=== PATIENT | female | born 1975 | race Two or more races ===

== ENCOUNTER → 2020-10-31 | Day surgery (SDC) | payer MEDICARE ==
[2020-10-29 11:14] VITALS: BP 113/66
[2020-10-29 11:38] LABS: BASOPHIL # 0.1 10^3/uL (0.0-0.1); BASOPHIL % 1.1 % (0.0-0.2); EOSINOPHIL # 0.3 10^3/uL (0.0-0.2); EOSINOPHIL % 3.4 % (0.0-5.0); LYMPHOCYTES # 1.62 10^3/uL1 (1.0-4.8); LYMPHOCYTES % 17.7 % (24.0-44.0); MONOCYTES # 0.7 10^3/uL (0.3-0.8); MONOCYTES % 7.9 % (5.0-12.0); NEUTROPHIL # 6.4 10^3/uL (1.8-7.7); NEUTROPHILS % 69.9 % (41.0-85.0); RED CELL DISTRIBUTION WIDTH 15.2 % (11.5-14.5)
--- NOTE | 2020-10-29 11:46 | PCM.EKG ---
[facility] Test Date: 2020-10-29 Test Time: 11:20:41 Pat Name: GEGE PUGH Department: Room: Gender: F Rn Circulating: LASHELL : 1952-10-25 Requested By: COSTA SEAMAN Order Number: [id number] Reading MD: Measurements Intervals [place] Rate: 87 P: 75 VT: 150 QRS: 70 QRSD: 66 T: 78 QT: 346 QTc: 416 Interpretive Statements Normal sinus rhythm Low voltage QRS Compared to ECG 04/22/2020 16:01:38 No significant changes Please click the below link to view image of tracing.
[2020-10-29 11:58] LABS: CARBON DIOXIDE 30.7 mmol/L (20.0-32)
[~2020-10-31] VITALS: Ht 160 cm; Wt 122.5 kg
[2020-10-31] VITALS (14 sets, daily range): BP systolic 87–125; BP diastolic 53–94
[~2020-10-31] MED LIST: ALBU8.5H7 IH; ALEN70TA3 PO; ALPR0.5T PO; ASPI-667 PO; ATOR40TA PO; CALC-76 PO; CYAN50009 PO; DUONEB IH; FLUT1BLS IH; FURO40TA4 PO; ISOS30TA73 PO; LEVO150T6 PO; LINA145C PO; LISI20TA PO; MAGN400T9 PO; METF500T17 PO; METO25TA4 PO; MIRT45TA3 PO; NS 1000ML 1,000 ML IV SCH; NS 1000ML 1,000 ML ONE; PHENYLEPHRINE IV ONE; POTA20TA14 PO; PRED20TA PO; SODIUM CHLORIDE IV ONE; SUBLIMAZE ONE; VENL150C PO; VERSED ONE; XYLOCAINE ONE; [UNRECOGNIZED DRUG - CODE] PO
--- NOTE | 2020-10-31 19:49 | CCRH ---
DATE OF SERVICE: 10/31/2020 DICTATOR NAME: COSTA SEAMAN, CARDIAC CATHETERIZATION REPORT INDICATIONS: Abnormal cardiac stress test. This is a 68-year-old female who underwent diagnostic noninvasive testing that revealed abnormal cardiac stress test. She was then set up for heart catheterization after informed consent were obtained, PROCEDURES PERFORMED: 1. Selective coronary angiography. 2. Left ventriculography. 3. Hemostasis established using a 6-Israeli Angio-Seal. DESCRIPTION OF PROCEDURE: Access was obtained, using a 4-Israeli micropuncture kit to cannulate the right common femoral artery. The 4-Israeli sheath was then upsized to a 6-Israeli regular short sheath. Diagnostic angiography was then carried out using the Christina left catheter to engage the left main. The left main was noted to be angiographically normal. It bifurcates into left anterior descending artery and the left circumflex artery. The left anterior descending artery is noted to have mild luminal irregularities. It runs in the interventricular groove, wrapping around the apex to form a type 3 LAD. It gives off a diagonal branch that is noted to have mild luminal irregularities. The left circumflex artery is also noted to have mild luminal irregularities. It gives off two obtuse marginal branches that are noted to have mild luminal irregularities. Christina left catheter was then exchanged for a Christina right, which was used to cross the aortic valve into the left ventricle. Left ventriculography was performed. LVEF was noted to be 60%. LVEDP was noted to be 12. Upon pullback of the Christina right catheter, there was no gradient across the aortic valve. The Christina right catheter was initially attempted to engage the RCA, but it became obvious that the RCA had a posterior takeoff. I then exchanged the catheter for a WRP catheter, which again proved difficult in accessing the right coronary artery. An Amplatz left 1 catheter was then utilized and I was able to successfully engage the RCA. RCA angiography showed a dominant RCA with mild luminal irregularities. The RCA bifurcates distally to a high takeoff posterolateral branch as well as the right posterior descending artery. Both branches are noted to have mild luminal irregularities. The RCA itself has mild luminal irregularities. The Amplatz left catheter was then taken out and hemostasis was established using a 6-Israeli Angio-Seal. 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 There were no complications. IMPRESSION: 1. Nonobstructive coronary artery disease. 2. Selective coronary angiography. 3. Left ventriculography. 4. LVEF of 60%. 5. LVEDP of 12. 6. Hemostasis established using a 6-Israeli Angio-Seal. RECOMMENDATIONS: No coronary intervention is necessary at this time. Lifestyle modification changes have been strongly advised. The patient will be discharged home today to follow up with me in the office in two to three weeks. Brendan AQUINO D.O. DR: OBDULIO TID: [id number] RECEIPT: [id number] MTDD
== END | disposition home or self-care (01) ==
LOC: EDBD → CCL 10:00 → EDBD 10:00
PROVIDERS: ATTEND Internal Medicine Interventional Cardiology
DX: I25.10 Atherosclerotic heart disease of native coronary artery without angina pectoris (principal); Z79.01 Long term (current) use of anticoagulants
CPT/HCPCS: 36415; 80053; 85025; 85610; 85730; 93005; 93458; C1760; C1769; C1887; C1894; J1644; J2250; J3010; J7030; Q9967; C1758

== ENCOUNTER 2021-06-26 17:43 | Inpatient (IN) | payer MEDICARE, MEDICAID ==
[~2021-06-26] VITALS: Ht 160 cm; Wt 132.4 kg
[~2021-06-26 17:43] MED LIST changes: +MAGN400T51 PO; -MAGN400T9 PO; -NS 1000ML 1,000 ML IV SCH; -NS 1000ML 1,000 ML ONE; -PHENYLEPHRINE IV ONE; +POTA-148 PO; -POTA20TA14 PO; -SODIUM CHLORIDE IV ONE; -SUBLIMAZE ONE; -VERSED ONE; -XYLOCAINE ONE
--- NOTE | 2021-06-26 17:50 | NUR ---
ARRIVAL PRESENTED TO ED RM#6 VIA EMS WITH C/O SOB, FLANK PAIN SINCE WEDNESDAY PER PATIENT. VS OBTAINED. SEPSIS PROTOCOL SCREENING POSITIVE. DR. XIONG NOTIFIED OF PATIENT ARRIVAL.
[2021-06-26 18:14] VITALS: BP_SYST 86; BP_SYST 88; BP_DIAS 35; BP_DIAS 43
--- NOTE | 2021-06-26 18:22 | PCM.EKG ---
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
--- NOTE | 2021-06-26 18:23 | ER.PDOC ---
General Chief Complaint: Dyspnea/Respdistress Stated Complaint: SOB/FLANK PAIN Time seen by MD: 18:21 Source: patient Exam Limitations: no limitations History of Present Illness Initial Comments Left flank pain, possible UTI and shortness of breath from the pain for last couple of days. Per EMS patient had a fever on scene. She denies cough. Severity/Quality: moderate, sharpness Associated Symptoms: fever/chills, other (SOB from flank pain) Exacerbated by: nothing Relieved By: nothing Allergies: Coded Allergies: lorazepam (Verified Allergy, Severe, Anaphylaxis Shock, 10/29/20) clindamycin (Verified Allergy, Unknown, FULL BODY RASH, ITCHING, 10/29/20) Home Meds Reported Medications Aspirin (ASPIRIN) 81 Mg Tab.chew, 1 TAB PO DAILY, #30 TAB 3 Refills 10/29/20 [Duoneb] No Conflict Check, 1 DOSE.PACK IH Q6 PRN for SHORTNESS OF BREATH 10/29/20 Isosorbide Mononitrate (ISOSORBIDE MONONITRATE ER) 30 Mg Tab.er.24h, 1 TAB PO DAILY, #30 TAB 5 Refills 10/29/20 Metoprolol Tartrate 25MG (LOPRESSER 25MG) 25 Mg Tablet, 0.5 TAB PO BID, #180 TAB 1 Refill 10/29/20 Levothyroxine Sodium (LEVOTHYROXINE SODIUM) 150 Mcg Tablet, 1 TAB PO DAILY, #30 TAB 5 Refills 10/29/20 Ergocalciferol (Vitamin D2) (Vitamin D2) 1,250 Mcg (48993 Unit) Capsule, 1 CAP PO Q7D 10/29/20 Mirtazapine (REMERON) 45 Mg Tab.rapdis, 45 MG PO HS, TAB 10/29/20 Potassium Chloride (POTASSIUM CHLORIDE) 20 Meq Tab.er.prt, 1 TAB PO DAILY, #30 TAB 5 Refills 10/29/20 Prednisone (PREDNISONE) 20 Mg Tablet, 0.5 TAB PO DAILY PRN for CONGESTION, #5 TAB 10/29/20 Fluticasone/Vilanterol (Breo Ellipta 200-25 Mcg INH) 1 Each Blst.w.dev, 1 EACH IH DAILY24, BLISTER 10/29/20 Alprazolam (XANAX) 0.5 Mg Tablet, 1 TAB PO BID, #60 TAB 10/29/20 Metformin Hcl (METFORMIN HCL) 500 Mg Tablet, 1 TAB PO DAILY24, #60 TAB 3 Refills 10/29/20 Venlafaxine Hcl (EFFEXOR XR) 150 Mg Cap.er.24h, 225 MG PO DAILY24, CAPSULE 10/29/20 Atorvastatin 40MG (LIPITOR 40MG) 40 Mg Tablet, 1 TAB PO HS, #90 TAB 1 Refill 10/29/20 Linaclotide (LINZESS) 145 Mcg Capsule, 145 MCG PO DAILY24, CAPSULE 10/29/20 Lisinopril (PRINIVIL) 20 Mg Tablet, 5 MG PO DAILY24, TAB 10/29/20 Furosemide (FUROSEMIDE) 40 Mg Tablet, 1 TAB PO DAILY, #30 TAB 5 Refills 10/29/20 Magnesium Oxide (MAGNESIUM OXIDE) 400 Mg Tablet, 1 TAB PO DAILY, #30 TAB 5 Refills 10/29/20 Albuterol Sulfate (PROAIR HFA) 8.5 Gm Hfa.aer.ad, 2 PUFF IH Q6 PRN for SHORTNESS OF BREATH, INHALATION 10/29/20 Cyanocobalamin (Vitamin B-12) (Vitamin B12) 5,000 Mcg Tab.rapdis, 2 TAB PO QD for 30 Days, #30 TAB 0 Refills 10/29/20 Alendronate Sodium (FOSAMAX) 70 Mg Tablet, 70 MG PO Q7D, TAB 10/29/20 Calcium Carb & Cit/Vitamin D3 (CALCIUM + D3 ER TABLET) 1 Each Tablet.er, 1 EACH PO TID 10/29/20 Vital Signs First Vital Signs Date Time Temp Pulse Resp B/P (MAP) Pulse Ox O2 Delivery O2 Flow Rate FiO2 06/26/21 18:14 99.2 111 22 88/43 (58) 94 5.00 Last Vital Signs Date Time Temp Pulse Resp B/P (MAP) Pulse Ox O2 Delivery O2 Flow Rate FiO2 06/26/21 18:14 101.0 110 21 94 06/26/21 18:14 88/43 (58) 5.00 Past Medical History Medical History: COPD, diabetes, hypertension Family History Significant Family History: no pertinent family hx Social History Smoking: non-smoker Alcohol Use: sober Drug Use: none Constitutional: no symptoms reported EENTM: no symptoms reported Respiratory: see HPI Cardiovascular: no symptoms reported Gastrointestinal: see HPI Genitourinary: see HPI All Other Systems: Reviewed and Negative Physical Exam General Appearance: No Apparent Distress, WD/WN, Obese HEENT: PERRL/EOMI, Normal ENT Inspection, TMs Normal, Pharynx Normal Neck: Non-Tender, Full Range of Motion, Supple, Normal Inspection Respiratory: chest non-tender, no respiratory distress, no accessory muscle use, rhonchi Cardiovascular: Normal Peripheral Pulses, Regular Rate, Rhythm, No Edema, No Gallop, No JVD, No Murmur, Tachycardia Gastrointestinal: Normal Bowel Sounds, No Organomegaly, No Pulsatile Mass, Tenderness Back: Normal Inspection, CVA Tenderness (L) Extremities: Normal Range of Motion, Non-Tender, Normal Inspection, No Pedal Edema, No Calf Tenderness, Normal Capillary Refill, Pelvis Stable 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 (06/26/21 18:18) Ekg-Routine (06/26/21 18:18) Troponin I High Sensitivity (06/26/21 18:18) Urinalysis (06/26/21 18:18) Ct Abd/Pelvis Wo Iv Contrast (06/26/21 18:18) Covid19 Antigen Angelic Demi (06/26/21 18:18) Lactic Acid(Ml) (06/26/21 18:18) Procalcitonin (06/26/21 18:18) 0.9 % Sodium Chloride (Ns 1000ml) (06/26/21 18:58) 0.9 % Sodium Chloride (Ns 1000ml) (06/26/21 18:59) Arterial Blood Gas (06/26/21 19:16) Urine Culture (06/26/21 19:10) Ct Abd/Pel With Iv Contrast (06/26/21 20:03) 0.9 % Sodium Chloride (Ns 1000ml) (06/26/21 21:27) 0.9 % Sodium Chloride (Ns 100ml) (06/26/21 21:28) Piperacillin Sodium/Tazobactam (Zosyn 3. (06/26/21 21:30) 0.9 % Sodium Chloride (Ns 1000ml) (06/26/21 21:30) Vital Signs Date Time Temp Pulse Resp B/P (MAP) Pulse Ox O2 Delivery O2 Flow Rate FiO2 06/26/21 18:14 101.0 110 21 94 06/26/21 18:14 101.0 110 21 06/26/21 18:14 99.2 111 22 88/43 (58) 94 5.00 Administered Medications Medications (Trade) Dose Ordered Sig/Bird Route PRN Reason Start Time Stop Time Status Last Admin Dose Admin Piperacillin Sod/ Tazobactam Sod 3.375 gm/Sodium Chloride 100 ml @ 100 mls/hr STAT STAT IV 06/26/21 21:30 06/26/21 22:29 DC 06/26/21 21:39 100 MLS/HR Sodium Chloride 1,000 ml @ 100 mls/hr Q10H STAT IV 06/26/21 21:30 06/27/21 07:29 06/26/21 21:39 100 MLS/HR Sodium Chloride 1,000 ml @ 1,000 mls/hr Q1H STAT IV 06/26/21 18:58 06/26/21 19:57 DC 06/26/21 19:14 1,000 MLS/HR Laboratory Tests Test 06/26/21 18:10 06/26/21 18:31 06/26/21 19:10 06/26/21 19:27 SARS-CoV-2 Antigen (Rapid) NEGATIVE (NEGATIVE) White Blood Count 17.0 10^3/uL (4.5-11.0) H Red Blood Count 3.57 10^6/uL (4.00-5.20) L Hemoglobin 11.3 g/dL (12.0-15.0) L Hematocrit 35.1 % (36.0-46.0) L Mean Corpuscular Volume 98.3 fL (78-100) Mean Corpuscular Hemoglobin 31.7 pg (26-34) Mean Corpuscular Hemoglobin Concent 32.2 g/dL (33-36.5) L Red Cell Distribution Width 14.2 % (11.5-14.5) Platelet Count 170 10^3/uL (150-400) Mean Platelet Volume 10.4 fL (7.8-11.0) Neutrophils (%) (Auto) 77.7 % (41.0-85.0) Lymphocytes (%) (Auto) 11.2 % (24.0-44.0) L Monocytes (%) (Auto) 10.3 % (5.0-12.0) Neutrophils # (Auto) 13.2 10^3/uL (1.8-7.7) H Lymphocytes # (Auto) 1.91 10^3/uL1 (1.0-4.8) Monocytes # (Auto) 1.8 10^3/uL (0.3-0.8) H Absolute Immature Granulocyte (auto 0.05 10^3 u/L (0-2) Absolute Eosinophils (auto) 0.0 10^3/uL (0.0-0.2) Immature Granulocytes % 0.30 % (0.00-0.50) Eosinophils % 0.1 % (0.0-5.0) Basophils % 0.4 % (0.0-0.2) H Basophils # 0.1 10^3/uL (0.0-0.1) Prothrombin Time 11.9 SEC (9.6-12.0) Prothrombin Time INR (Non-Therap) 1.1 Activated Partial Thromboplast Time 26.7 SEC (24.67-30.72) Sodium Level 129 mmol/L (132-145) L Potassium Level 3.5 mmol/L (3.6-5.2) L Chloride Level 95.0 mmol/L (96-109) L Carbon Dioxide Level 28.3 mmol/L (20.0-32) Anion Gap 9.2 Blood Urea Nitrogen 12 mg/dL (7-18) Creatinine 1.21 mg/dL (0.59-1.40) Estimated GFR () 53.4 (>/=60) Est GFR (CKD-EPI)(Non-Afr Kosovan) 44.1 (>/=60) BUN/Creatinine Ratio 9.0 Glucose Level 136 mg/dL (70-110) H Lactic Acid Level 1.7 mmol/L (0.5-1.9) Calcium Level 7.5 mg/dL (8.4-10.5) L Total Bilirubin 0.7 mg/dL (0.2-1.0) Aspartate Amino Transferase (AST) 22 U/L (0-35) Alanine Aminotransferase (ALT) 24 U/L (12-78) Alkaline Phosphatase 85 U/L (50-136) Total Creatine Kinase 34 U/L (26-192) Creatine Kinase MB < 0.5 ng/mL (0.5-3.6) L Troponin I High Sensitivity 8 ng/L (0-50) Pro-B-Type Natriuretic Peptide 118 pg/mL (0-125) Total Protein 5.9 g/dL (6.4-8.2) L Albumin 2.4 g/dL (3.4-5.0) L Globulin 3.5 Albumin/Globulin Ratio 0.685 Procalcitonin 0.26 ng/mL (0.05-0.5) Urine Collection Type UNKNOWN Urine Color IBIS Urine Appearance CLOUDY Urine Bilirubin (NEGATIVE) Urine Ketones NEGATIVE (NEGATIVE) Urine Specific [place] (1.005-1.030) Urine pH 7.5 (4.5-8.0) Urine Protein 3+ (NEGATIVE) H Urine Urobilinogen E.U./dL (0.2) Urine Nitrate NEGATIVE (NEGATIVE) Urine Leukocyte Esterase 3+ (NEGATIVE) H Urine Glucose (Auto)(UA) NEGATIVE (NEGATIVE) Urine Blood 3+ (NEGATIVE) H Urine RBC TooNumerousToCount RBC/HPF (NONE Urine WBC TooNumerousToCount WBC/HPF (0-2) Urine Squamous Epithelial Cells FEW (<=FEW) Urine Bacteria MANY (NONE SEEN) H Blood Gas Sample Site LB Blood pH 7.346 (7.350-7.450) Blood Gas PCO2 47.3 mmHg (35.0-45.0) H Blood Gas PO2 66.4 mmHg (80.0-100.0) L Blood Gas HCO3 25.3 mmol/L (22.0-26.0) Blood Gas Base Excess -0.7 mmol/L (-2.0-2.0) Dimitri Test N/A Arterial Blood Oxygen Saturation 92.2 % (94.0-97.00) L Deoxyhemoglobin 7.7 % (0.0-5.0) H Carboxyhemoglobin 0.7 % (0.0-3.9) Methemoglobin 0.5 % (0.00-5.0) Total Hemoglobin 11.9 % (12.0-17.8) L Total Oxygen Concentration 15.3 % (13.5-17.5) Oxygen Delivery Method 3L/M FiO2 32 % (20-101) Total Carbon Dioxide 26.7 mmol/L (23-27) Progress Progress CT abdomen/pelvis: Findings highly concerning for pyelonephritis with possible left lower pole renal abscess. There is significant left perinephric and periureteral inflammatory stranding and smooth urothelial enhancement. Questionable punctate left lower pole renal calculi. 2. Other stable incidental findings as above. I spoke with Dr. Funez who is the Urologist at [facility] in [place]. He told me that 3.2 cm renal abscess is too small to drain by interventional radiologist and should be managed medically so no reason to transfer patient. . EKG/XRAY/CT/US EKG: NSR EKG Comments: HR 106, sinus tachycardia ER DEPART Departure Time of Disposition: 22:46 Disposition: 09 ADMITTED INPATIENT Impression: Primary Impression: Sepsis Additional Impressions: Pyelonephritis Renal abscess, left COPD (chronic obstructive pulmonary disease) Condition: Stable Referrals: PCP,UNKNOWN (PCP) PRIMARY CARE PROVIDER Comments Admitted to Dr. Jackson Duration or Time Spent with Pa: 60 min Problem Qualifiers Primary Impression: Sepsis Sepsis type: sepsis due to unspecified organism Sepsis acute organ dysfunction status: unspecified Qualified Codes: A41.9 - Sepsis, unspecified organism Additional Impressions: COPD (chronic obstructive pulmonary disease) COPD type: unspecified COPD Qualified Codes: J44.9 - Chronic obstructive pulmonary disease, unspecified OZZIE XIONG MD Jun 26, 2021 18:23
--- NOTE | 2021-06-26 18:28 | NUR ---
REPORT REPORT GIVEN TO ONCOMING SHIFT.
[2021-06-26 18:37] LABS: BASOPHIL # 0.1 10^3/uL (0.0-0.1); BASOPHIL % 0.4 % (0.0-0.2); EOSINOPHIL % 0.1 % (0.0-5.0); LYMPHOCYTES # 1.91 10^3/uL1 (1.0-4.8); LYMPHOCYTES % 11.2 % (24.0-44.0); MEAN CORP HGB 31.7 pg (26-34); MONOCYTES # 1.8 10^3/uL (0.3-0.8); MONOCYTES % 10.3 % (5.0-12.0); NEUTROPHIL # 13.2 10^3/uL (1.8-7.7); NEUTROPHILS % 77.7 % (41.0-85.0); PLATELET COUNT 170 10^3/uL (150-400); RED CELL DISTRIBUTION WIDTH 14.2 % (11.5-14.5)
[2021-06-26] MEDS ORDERED: NS 1000ML 1,000 ML IV STA ×2 (18:58→21:30)
[2021-06-26] MEDS ORDERED: NS 1000ML 1,000 ML ONE ×2 (18:59→21:27)
--- NOTE | 2021-06-26 19:01 | DIREP ---
PROCEDURE:CHEST 1 VIEW Lordotic COMPARISON:[facility], CR, XRAY CHEST SINGLE VW, 04/22/2020, 04:12 PM. INDICATIONS:SOB FINDINGS: LUNGS/PLEURA:Lordotic chest shows increased density right anjana thorax compared to the contralateral left air bronchograms are not detected. VASCULATURE:Normal. Unremarkable pulmonary vasculature. CARDIAC:Large heart MEDIASTINUM:Normal. No visible mass or adenopathy. BONES:Normal. No fracture or visible bony lesion. OTHER:Negative. CONCLUSION:Lordotic view of the chest shows increased density left anjana thorax compared to the contralateral right. This may be related to overlying soft tissue. If pneumonia is suspected on clinical grounds recommend CT of the chest. Dictated by: Tyra Collier MD on 06/26/2021 at 06:56 PM
--- NOTE | 2021-06-26 19:16 | DIREP ---
PROCEDURE:CT ABDOMEN/PELVIS W/O CONTRAST COMPARISON:[facility], CT, CTA ABDOMEN PELVIS W RUNOFF, 01/17/2020, 10:00 AM. INDICATIONS:Left flank pain TECHNIQUE:Axial images were created through the abdomen and pelvis without intravenous contrast material. No oral contrast was administered. Sagittal and coronal reconstructions were performed from source images. FINDINGS: LUNG BASES:No infiltrate. Sub pleural fat in both posterior sulci, left greater than right LIVER:Normal. No significant liver lesions are identified. BILIARY:Cholecystectomy PANCREAS:Normal. No lesion, fluid collection, ductal dilatation, or atrophy. SPLEEN:Normal. No enlargement or focal lesion. ADRENALS:Normal. No mass or enlargement. URINARY TRACT:18 mm exophytic cyst lower pole right kidney. No hydronephrosis or hydroureter on the right. No nephrolithiasis Left kidney is too masses distorting the contour of the lower pole, the largest is 2.9 cm in diameter, both are slightly hypodense in could represent cysts. The larger lower pole mass has a slightly hyperdense margin raising the possibility of an abscess or neoplasm. There is edema in the perinephric fat on the left. There is subtle thickening of Gerota's fascia and the lateral Conal fascia on the left. Left ureter is not dilated. There is no nephrolithiasis or ureteric stone. AORTA/VASCULAR:Normal. No aneurysm. RETROPERITONEUM:No para-aortic adenopathy. Enlarged tristan hepatis lymph nodes, the largest is 13 mm in short axis diameter, essentially unchanged from 01/17/[address] BOWEL/MESENTERY:Normal. There is no intestinal obstruction, free fluid, free air or mesenteric inflammatory changes. ABDOMINAL WALL:Normal. No mass or hernia. PELVIC ORGANS:Normal. No visible mass. Pelvic organs appropriate for patient age. BONES:Uterus is absent. No free fluid in the pelvis OTHER:Negative. CONCLUSION:Perinephric edema on the left. Two masses involving the lower pole of the left kidney, the most exophytic may represent a cyst. A lower pole parenchymal mass has a subtle hyperdense rim, consider abscess or neoplasm. No nephrolithiasis. No hydronephrosis or hydroureter on either side. Dictated by: Tyra Collier MD on 06/26/2021 at 07:01 PM
[2021-06-26 19:21] LABS: CARBON DIOXIDE 28.3 mmol/L (20.0-32); GLUCOSE 136 mg/dL (70-110)
--- NOTE | 2021-06-26 19:30 | NUR ---
pt unable to void after attempt to go to BR. 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 pt tolerated procedure well.
[2021-06-26 19:35] LABS: ABG PCO2 47.3 mmHg (35.0-45.0); ABG PH 7.346 (7.350-7.450); BE(B) -0.7 mmol/L (-2.0-2.0); HCO3act 25.3 mmol/L (22.0-26.0); pO2 66.4 mmHg (80.0-100.0)
--- NOTE | 2021-06-26 21:09 | DIREP ---
PROCEDURE:CT ABDOMEN/PELVIS W/ CONTRAST COMPARISON:[facility], CT, CT ABD/PELVIS W/O, 06/26/2021, 06:40 PM. [facility], CT, CTA ABDOMEN PELVIS W RUNOFF, 01/17/2020, 10:00 AM. INDICATIONS:Left flank pain TECHNIQUE:Axial images were created through the abdomen and pelvis with non-ionic intravenous contrast material. No oral contrast was administered. Sagittal and coronal reconstructions were performed from source images. FINDINGS: LUNG BASES:Subsegmental left basilar atelectasis. No consolidation or pleural effusion. Normal heart size. LIVER:Mild hypoattenuation of the liver relative to the spleen, not technically meeting criteria for diffuse hepatic steatosis. No focal hepatic lesion is seen. BILIARY:The gallbladder is surgically absent. No biliary ductal dilatation. PANCREAS:Normal. No lesion, fluid collection, ductal dilatation, or atrophy. SPLEEN:Normal. No enlargement or focal lesion. ADRENALS:Normal. No mass or enlargement. URINARY TRACT:Slight hypoenhancement of the left kidney relative to the right. Ill-defined mildly complex left lower pole renal lesion measuring 3.2 cm with significant surrounding perinephric inflammatory change, possibly an abscess. Other renal cortical hypodensities bilaterally measure simple fluid attenuation and are compatible with cysts. Possible tiny punctate nonobstructive left lower pole calculi. There is smooth urothelial enhancement of the left renal collecting system. AORTA/VASCULAR:There are aortic atherosclerotic calcifications present. No aneurysm. RETROPERITONEUM:Left perinephric stranding is present. No retroperitoneal adenopathy. There is a mildly enlarged portacaval node measuring 1.5 cm in short axis, likely reactive. BOWEL/MESENTERY:The appendix is not visualized. There is no intestinal obstruction, free fluid, free air or mesenteric inflammatory changes. Submucosal fat deposition in the left colon suggesting prior inflammation. ABDOMINAL WALL:Normal. No mass or hernia. PELVIC ORGANS:The uterus is surgically absent. There is no suspicious adnexal mass. The urinary bladder is collapsed, limiting evaluation. BONES:Normal for age. No bony lesion or acute fracture. OTHER:Dystrophic calcification inferior to the right scapula may represent sequela of prior trauma. CONCLUSION: 1. Findings highly concerning for pyelonephritis with possible left lower pole renal abscess. There is significant left perinephric and periureteral inflammatory stranding and smooth urothelial enhancement. Questionable punctate left lower pole renal calculi. 2. Other stable incidental findings as above. Dictated by: Jarret Ochoa M.D. on 06/26/2021 at 08:48 PM
[2021-06-26] MEDS ORDERED: NS 100ML 100 ML IV ONE (21:28)
[2021-06-26] MEDS ORDERED: ZOSYN 3.375 GM 3.375 GM in NS 100ML 100 ML IV STA (21:30)
--- NOTE | 2021-06-26 22:03 | NUR ---
SPOKE WITH TRANSFER LINE AT [facility], INFO GIVEN.
--- NOTE | 2021-06-26 22:17 | NUR ---
SPOKE WITH TRANSFER LINE AT [facility], INFO GIVEN.
--- NOTE | 2021-06-26 22:18 | NUR ---
Cat MARTELL PT
--- NOTE | 2021-06-26 22:19 | NUR ---
[facility] TRANSFER LINE ON PHONE WITH DR XIONG AT THIS TIME.
[2021-06-26] MEDS: ZOSYN 3.375 GM 3.375 GM in NS 100ML 100 ML IV SCH (23:46)
[2021-06-27] VITALS (51 sets, daily range): BP systolic 85–144; BP diastolic 17–94
[2021-06-27] MEDS ORDERED: NS 1000ML 1,000 ML IV SCH (00:30)
[2021-06-27] MEDS: NS 1000ML 1,000 ML IV SCH ×2 (00:30→12:00)
--- NOTE | 2021-06-27 01:00 | NUR ---
Attempted to notified Dr. Jackson of pts arrival- unable to reach
[2021-06-27] MEDS ORDERED: MORPHINE SULFATE IV PRN (04:00)
--- NOTE | 2021-06-27 04:13 | NUR ---
Dr. Jackson notified of pt arrival time and status. new orders received.
[2021-06-27 04:20] LABS: BASOPHIL % 0.3 % (0.0-0.2); EOSINOPHIL % 0.2 % (0.0-5.0); LYMPHOCYTES # 1.48 10^3/uL1 (1.0-4.8); MEAN CORP HGB 31.5 pg (26-34); MONOCYTES # 1.1 10^3/uL (0.3-0.8); NEUTROPHIL # 10.8 10^3/uL (1.8-7.7); NEUTROPHILS % 80.5 % (41.0-85.0); PLATELET COUNT 165 10^3/uL (150-400); RED CELL DISTRIBUTION WIDTH 14.2 % (11.5-14.5)
[2021-06-27 04:32] LABS: CARBON DIOXIDE 29.7 mmol/L (20.0-32)
[2021-06-27] MEDS: ZOSYN 3.375 GM 3.375 GM in NS 100ML 100 ML IV SCH ×4 (06:00→22:45)
[2021-06-27] MEDS ORDERED: NS 100ML 100 ML IV ONE (06:02)
--- NOTE | 2021-06-27 10:54 | NUR ---
DISCHARGE PLAN CM VISITED WITH PATIENT REGARDING D/C PLAN. PATIENT LIVES AT HOME ALONE. SHE HAS A WALKER, W/C, SHOWER CHAIR AND HOME 02 THAT SHE WEARS AT [employer]. SHE RECEIVES MEALS FROM [employer]. HER PCP IS ROBIN KOO. SHE HAS [facility] IN PLACE AND IS ON SERVICE FOR CAD, UTI AND PSYCH SERVICES. CM DISCUSSED WITH PENNIE BECKHAM NURSE PATIENT REQUESTING PROVIDER SERVICES AT HOME. PER PENNIE SHE WILL HAVE SS SCREEN HER TO SEE IF SHE CAN QUALIFY. DISCHARGE PLAN IS FOR PATIENT TO D/C BACK HOME WITH [facility] TO FOLLOW.
--- NOTE | 2021-06-27 13:04 | NUR ---
O2 CHECK - pat on 3lpm nc per home o2 setting - SPO2 95% Addendum: 06/27/21 at 1308 by Kailee Mittal RRT, Contract RT Amended: Links added.
[2021-06-27] MEDS ORDERED: VENTOLIN IH PRN (15:00)
[2021-06-27] MEDS ORDERED: DEXTROSE 50%-WATER SYRINGE IV PRN (15:00)
[2021-06-27] MEDS ORDERED: DUO 0.5-3(2.5) MG/3 ML IH PRN (15:00)
[2021-06-27] MEDS ORDERED: TYLENOL PO PRN (15:00)
[2021-06-27] MEDS ORDERED: D5W 1000ML 1,000 ML PRN (15:00)
--- NOTE | 2021-06-27 15:11 | PCM.HP ---
History of Present Illness Reason for Visit: Left flank pain History of Present Illness 68-year-old female with multiple medical problems including hypertension, diabetes, morbid obesity, COPD, coronary artery disease, congestive heart failure, among others presented to the emergency room with left flank pain. In the emergency room patient had low blood pressure, hypotensive. Work-up patient was found to have left pyelonephritis with possible abscess. Attempts to transfer the patient to medical facility where there is interventional radiology available was attempted but unsuccessful due to nonavailability of beds. Patient is on IV fluids. IV antibiotic. Patient was admitted to the intensive care unit for further management. Past Medical History Cardiac: CAD, CHF, HTN Pulmonary: COPD Endocrine: Diabetes Review of Systems Constitutional: Fever, Chills, Weakness Respiratory: Shortness of breath Gastrointestinal: Nausea Genitourinary: Dysuria, Other (Flank pain) Neurological: Weakness Allergies: Coded Allergies: lorazepam (Verified Allergy, Severe, Anaphylaxis Shock, 10/29/20) clindamycin (Verified Allergy, Unknown, FULL BODY RASH, ITCHING, 10/29/20) Scheduled Alendronate Sodium (Fosamax), 70 MG PO Q7D, (Reported) Alprazolam (Xanax), 1 TAB PO BID, (Reported) Aspirin (Aspirin), 1 TAB PO DAILY, (Reported) Atorvastatin 40MG (Lipitor 40MG), 1 TAB PO HS, (Reported) Calcium Carb & Cit/Vitamin D3 (Calcium + D3 Er Tablet), 1 EACH PO TID, (Reported) Cyanocobalamin (Vitamin B-12) (Vitamin B12), 2 TAB PO QD, (Reported) Ergocalciferol (Vitamin D2) (Vitamin D2), 1 CAP PO Q7D, (Reported) Fluticasone/Vilanterol (Breo Ellipta 200-25 Mcg INH), 1 EACH IH DAILY24, (Reported) Furosemide (Furosemide), 1 TAB PO DAILY, (Reported) Isosorbide Mononitrate (Isosorbide Mononitrate Er), 1 TAB PO DAILY, (Reported) Levothyroxine Sodium (Levothyroxine Sodium), 1 TAB PO DAILY, (Reported) Linaclotide (Linzess), 145 MCG PO DAILY24, (Reported) Lisinopril (Prinivil), 5 MG PO DAILY24, (Reported) Magnesium Oxide (Magnesium Oxide), 1 TAB PO DAILY, (Reported) Metformin Hcl (Metformin Hcl), 1 TAB PO DAILY24, (Reported) Metoprolol Tartrate 25MG (Lopresser 25MG), 0.5 TAB PO BID, (Reported) Mirtazapine (Remeron), 45 MG PO HS, (Reported) Potassium Chloride (Potassium Chloride), 1 TAB PO DAILY, (Reported) Venlafaxine Hcl (Effexor Xr), 225 MG PO DAILY24, (Reported) Scheduled PRN Albuterol Sulfate (Proair Hfa), 2 PUFF IH Q6 PRN for SHORTNESS OF BREATH, (Reported) Prednisone (Prednisone), 0.5 TAB PO DAILY PRN for CONGESTION, (Reported) [Duoneb], 1 DOSE.PACK IH Q6 PRN for SHORTNESS OF BREATH, (Reported) Exam Vital Signs Vital Signs Date Time Temp Pulse Resp B/P (MAP) Pulse Ox O2 Delivery O2 Flow Rate FiO2 06/27/21 14:27 106 21 115/51 (72) 97 06/27/21 12:00 Nasal Cannula 3.00 06/27/21 08:30 99.0 06/27/21 07:38 32 General Appearance: Alert, moderate distress HEENT: Atraumatic, Other (Dry mucous membrane) Respiratory: Other (Diminished air entry bilaterally) Cardiovascular: Regular rate, Normal S1, Normal S2 Abdominal: Normal bowel sounds, Soft, No tenderness Extremities: No clubbing, No cyanosis Skin: No lesions Neuro: Other (Patient is slow in answering questions, unknown baseline) Psych/Mental Status: Other (Unable to assess) Assessment/Plan Assessment/Plan Assessment/Plan Plan Admit Septic work-up including blood culture and urine cultures IV fluids IV antibiotic continue with Zosyn for now awaiting culture results Attempts to transfer the patient to a facility where there is interventional radiology available was unsuccessful in the ED. We will consult urology for evaluation further recommendations SSI Reconcile home meds GI and DVT prophylaxis appropriate Expect length of stay more than 2 midnights Problems: (1) Sepsis Status: Acute ICD Code: A41.9 - Sepsis, unspecified organism SNOMED: 29012101 (2) Renal abscess, left Status: Acute ICD Code: N15.1 - Renal and perinephric abscess SNOMED: 4294572 (3) Pyelonephritis Status: Acute ICD Code: N12 - Tubulo-interstitial nephritis, not specified as acute or chronic SNOMED: 09360807 (4) COPD (chronic obstructive pulmonary disease) Status: Acute ICD Code: J44.9 - Chronic obstructive pulmonary disease, unspecified SNOMED: 06285716 (5) Diabetes mellitus ICD Code: E11.9 - Type 2 diabetes mellitus without complications SNOMED: 89198221 (6) Coronary artery disease ICD Code: I25.10 - Atherosclerotic heart disease of [place] coronary artery without angina pectoris SNOMED: 02354734 Patient History: Alzheimer's disease G8 FATHER, Age:87 Cardiac pacemaker G8 BROTHER Diabetes mellitus G8 FATHER, Age:87 FH: coronary artery bypass surgery G8 FATHER, Age:87 FH: coronary artery disease G8 FATHER, Age:87 FH: heart disease G8 FATHER, Age:87 G8 BROTHER 19 CHILD, , Age:39, Onset:19 FH: prostate cancer G8 BROTHER Hypertension G8 MOTHER, , Age:86 G8 FATHER, Age:87 19 CHILD, , Age:39 No known health problems G8 BROTHER 19 CHILD No Family History of: Asthma Cerebrovascular disorder Chronic obstructive pulmonary disease Congestive heart failure Diabetes insipidus Parkinson's disease Problem Qualifiers (1) Sepsis: Sepsis type: sepsis due to unspecified organism Sepsis acute organ dysfunction status: unspecified Qualified Codes: A41.9 - Sepsis, unspecified organism (2) COPD (chronic obstructive pulmonary disease): COPD type: unspecified COPD Qualified Codes: J44.9 - Chronic obstructive pulmonary disease, unspecified ANSELMO MORGAN MD Jun 27, 2021 15:11
--- NOTE | 2021-06-27 16:00 | NUR ---
Transfer Transferred from ICU 7 to [facility] 332. Transferred via wheel chair. Transferred from wheel chair to bed with minimal assistance x1. Report and care given to Lacey Ricardo RN.
[2021-06-27] MEDS: HUMALOG SQ SCH ×2 (16:36→22:43)
[2021-06-27] MEDS ORDERED: ZOFRAN ONE (16:48)
[2021-06-27] MEDS: LOVENOX SQ SCH (16:58)
[2021-06-27] MEDS: ULTRAM PO PRN (16:59)
[2021-06-27] MEDS ORDERED: ZOFRAN IV PRN (17:00)
[2021-06-28 01:06] VITALS: BP 128/60
[2021-06-28] MEDS: NS 1000ML 1,000 ML IV SCH ×3 (02:12→16:29)
[2021-06-28] MEDS: ULTRAM PO PRN (03:24)
[2021-06-28] MEDS: ZOSYN 3.375 GM 3.375 GM in NS 100ML 100 ML IV SCH ×4 (05:34→23:11)
[2021-06-28 05:38] VITALS: BP 137/59
[2021-06-28 08:00] LABS: BASOPHIL % 0.3 % (0.0-0.2); EOSINOPHIL # 0.1 10^3/uL (0.0-0.2); EOSINOPHIL % 0.4 % (0.0-5.0); LYMPHOCYTES # 0.67 10^3/uL1 (1.0-4.8); LYMPHOCYTES % 5.2 % (24.0-44.0); MEAN CORP HGB 31.5 pg (26-34); MONOCYTES # 1.1 10^3/uL (0.3-0.8); MONOCYTES % 8.2 % (5.0-12.0); NEUTROPHILS % 85.5 % (41.0-85.0); PLATELET COUNT 205 10^3/uL (150-400)
[2021-06-28 08:21] LABS: CARBON DIOXIDE 24.6 mmol/L (20.0-32)
[2021-06-28] MEDS: HUMALOG SQ SCH ×4 (08:42→21:35)
[2021-06-28] MEDS ORDERED: KCL 20MEQ/100ML 100 ML IV STA (08:49)
[2021-06-28] MEDS ORDERED: POTASSIUM CHLORIDE PO ONE ×2 (09:00→10:30)
[2021-06-28] MEDS: PROTONIX IV IV SCH (09:55)
[2021-06-28 11:31] VITALS: BP 123/60
--- NOTE | 2021-06-28 12:25 | PRM.PN ---
Subjective Subjective Date: Jun 28, 2021 Time: 09:00 Subjective New new complaints except for left flank pain. WBC count continues to trend down, patient afebrile. Patient is hypokalemic with potassium of 3.1, being replaced. Sodium is 129. Urine culture growing Klebsiella and Proteus, sensi tive to Zosyn. Patient History: Alzheimer's disease G8 FATHER, Age:87 Cardiac pacemaker G8 BROTHER Diabetes mellitus G8 FATHER, Age:87 FH: coronary artery bypass surgery G8 FATHER, Age:87 FH: coronary artery disease G8 FATHER, Age:87 FH: heart disease G8 FATHER, Age:87 G8 BROTHER 19 CHILD, , Age:39, Onset:19 FH: prostate cancer G8 BROTHER Hypertension G8 MOTHER, , Age:86 G8 FATHER, Age:87 19 CHILD, , Age:39 No known health problems G8 BROTHER 19 CHILD No Family History of: Asthma Cerebrovascular disorder Chronic obstructive pulmonary disease Congestive heart failure Diabetes insipidus Parkinson's disease Review of Systems Constitutional: Chills, Weakness Respiratory: Shortness of breath Gastrointestinal: Nausea Genitourinary: Dysuria, Other (Flank pain) Neurological: Weakness Allergies: Coded Allergies: lorazepam (Verified Allergy, Severe, Anaphylaxis Shock, 10/29/20) clindamycin (Verified Allergy, Unknown, FULL BODY RASH, ITCHING, 10/29/20) Scheduled Alendronate Sodium (Fosamax), 70 MG PO Q7D, (Reported) Alprazolam (Xanax), 1 TAB PO BID, (Reported) Aspirin (Aspirin), 1 TAB PO DAILY, (Reported) Atorvastatin 40MG (Lipitor 40MG), 1 TAB PO HS, (Reported) Calcium Carb & Cit/Vitamin D3 (Calcium + D3 Er Tablet), 1 EACH PO TID, (Reporte d) Cyanocobalamin (Vitamin B-12) (Vitamin B12), 2 TAB PO QD, (Reported) Ergocalciferol (Vitamin D2) (Vitamin D2), 1 CAP PO Q7D, (Reported) Fluticasone/Vilanterol (Breo Ellipta 200-25 Mcg INH), 1 EACH IH DAILY24, (Reported) Furosemide (Furosemide), 1 TAB PO DAILY, (Reported) Isosorbide Mononitrate (Isosorbide Mononitrate Er), 1 TAB PO DAILY, (Reported) Levothyroxine Sodium (Levothyroxine Sodium), 1 TAB PO DAILY, (Reported) Linaclotide (Linzess), 145 MCG PO DAILY24, (Reported) Lisinopril (Prinivil), 5 MG PO DAILY24, (Reported) Magnesium Oxide (Magnesium Oxide), 1 TAB PO DAILY, (Reported) Metformin Hcl (Metformin Hcl), 1 TAB PO DAILY24, (Reported) Metoprolol Tartrate 25MG (Lopresser 25MG), 0.5 TAB PO BID, (Reported) Mirtazapine (Remeron), 45 MG PO HS, (Reported) Potassium Chloride (Potassium Chloride), 1 TAB PO DAILY, (Reported) Venlafaxine Hcl (Effexor Xr), 225 MG PO DAILY24, (Reported) Scheduled PRN Albuterol Sulfate (Proair Hfa), 2 PUFF IH Q6 PRN for SHORTNESS OF BREATH, (Reported) Prednisone (Prednisone), 0.5 TAB PO DAILY PRN for CONGESTION, (Reported) [Duoneb], 1 DOSE.PACK IH Q6 PRN for SHORTNESS OF BREATH, (Reported) Objective Vitals and I/O Vital Sign - Last 24 Hours 06/27/21 06/27/21 06/27/21 06/27/21 12:28 12:30 12:42 13:00 Pulse 122 117 108 107 Resp B/P (MAP) 118/58 (78) 121/65 (83) Pulse Ox 89 90 94 95 06/27/21 06/27/21 06/27/21 06/27/21 13:12 13:15 13:30 13:42 Pulse 104 104 105 111 Resp B/P (MAP) 87/55 (66) 115/71 (86) Pulse Ox 94 94 96 92 06/27/21 06/27/21 06/27/21 06/27/21 13:45 13:57 14:00 14:13 Pulse 108 107 107 107 Resp B/P (MAP) 117/31 (59) 114/51 (72) Pulse Ox 93 91 95 85 06/27/21 06/27/21 06/27/21 06/27/21 14:15 14:27 14:45 14:57 Pulse 108 106 106 103 Resp B/P (MAP) 115/51 (72) 99/54 (69) Pulse Ox 94 97 98 97 06/27/21 06/27/21 06/27/21 06/27/21 15:00 15:12 15:15 15:27 Pulse 103 104 103 107 Resp 19 B/P (MAP) 122/45 (70) 111/53 (72) Pulse Ox 95 95 94 94 06/27/21 06/27/21 06/27/21 06/27/21 15:30 15:42 15:45 15:57 Pulse 105 104 101 Resp B/P (MAP) 109/45 (66) 105/52 (69) Pulse Ox 94 95 94 93 06/27/21 06/27/21 06/27/21 06/27/21 16:00 16:12 16:15 17:02 Pulse 101 102 106 Resp B/P (MAP) 107/66 (80) Pulse Ox 94 89 O2 Delivery Nasal Cannula O2 Flow Rate 3.00 06/27/21 06/27/21 06/27/21 06/28/21 20:41 22:40 22:53 01:06 Temp 98.9 98.7 Pulse 102 102 91 Resp 16 B/P (MAP) 111/42 (65) 128/60 (82) Pulse Ox 95 95 98 O2 Delivery Nasal Canula Nasal Cannula Nasal Cannula Nasal Canula O2 Flow Rate 3.00 3.00 3.00 3.00 FiO2 32 06/28/21 06/28/21 06/28/21 06/28/21 05:38 09:30 09:30 11:31 Temp 99.8 98.8 Pulse 101 84 84 93 Resp 18 18 18 18 B/P (MAP) 137/59 (85) 123/60 (81) Pulse Ox 94 97 97 94 O2 Delivery Nasal [place] Nasal Cannula Nasal Canula O2 Flow Rate 3.00 3.00 3.00 FiO2 32 06/28/21 11:38 O2 Delivery Nasal Cannula O2 Flow Rate 3.00 Intake and Output 06/28/21 07:00 Intake Total 2562 ml Output Total 3400 ml Balance -838 ml General: Alert, moderate distress HEENT: Atraumatic, Other (Dry mucous membrane) Lungs: Other (Diminished air entry bilaterally) Heart: Regular rate, Normal S1, Normal S2 Abdomen: Normal bowel sounds, Soft, No tenderness Extremities: No clubbing, No cyanosis Neuro: Other (Patient is slow in answering questions, unknown baseline) Psych/Mental Status: Other (Unable to assess) All Results(Lab/Rad) Laboratory Tests Test 06/27/21 16:22 06/27/21 21:09 06/28/21 07:40 06/28/21 11:57 Bedside Glucose 122 106 163 White Blood Count 12.9 10^3/uL Red Blood Count 3.52 10^6/uL Hemoglobin 11.1 g/dL Hematocrit 35.4 % Mean Corpuscular Volume 100.6 fL Mean Corpuscular Hemoglobin 31.5 pg Mean Corpuscular Hemoglobin Concent 31.4 g/dL Red Cell Distribution Width 14.0 % Platelet Count 205 10^3/uL Mean Platelet Volume 11.1 fL Neutrophils (%) (Auto) 85.5 % Lymphocytes (%) (Auto) 5.2 % Monocytes (%) (Auto) 8.2 % Neutrophils # (Auto) 11.0 10^3/uL Lymphocytes # (Auto) 0.67 10^3/uL1 Monocytes # (Auto) 1.1 10^3/uL Absolute Immature Granulocyte (auto 0.05 10^3 u/L Absolute Eosinophils (auto) 0.1 10^3/uL Immature Granulocytes % 0.40 % Eosinophils % 0.4 % Basophils % 0.3 % Basophils # 0.0 10^3/uL Sodium Level 129 mmol/L Potassium Level 3.1 mmol/L Chloride Level 98.0 mmol/L Carbon Dioxide Level 24.6 mmol/L Anion Gap 9.5 Blood Urea Nitrogen 5 mg/dL Creatinine 0.76 mg/dL Estimated GFR () 91.3 Est GFR (CKD-EPI)(Non-Afr [place]) 75.5 BUN/Creatinine Ratio 6.0 Glucose Level 120 mg/dL Calcium Level 7.4 mg/dL Total Bilirubin 0.5 mg/dL Aspartate Amino Transf (AST/SGOT) 31 U/L Alanine Aminotransferase (ALT/SGPT) 32 U/L Alkaline Phosphatase 96 U/L Total Protein 5.6 g/dL Albumin 1.9 g/dL Globulin 3.7 Albumin/Globulin Ratio 0.513 Current Medications Medications (Trade) Dose Ordered Sig/Bird Route PRN Reason Start Time Stop Time Status Last Admin Dose Admin Sodium Chloride 1,000 ml @ 1,000 mls/hr Q1H STAT IV 06/26/21 18:58 06/26/21 19:57 DC 06/26/21 19:14 Sodium Chloride 1,000 ml @ STK-MED ONCE .ROUTE 06/26/21 18:59 06/26/21 19:00 DC Sodium Chloride 1,000 ml @ ud STK-MED ONCE .ROUTE 06/26/21 21:27 06/26/21 21:27 DC Sodium Chloride 100 ml @ STK-MED ONCE IV 06/26/21 21:28 06/26/21 21:28 DC Piperacillin Sod/ Tazobactam Sod 3.375 gm/Sodium Chloride 100 ml @ 100 mls/hr STAT STAT IV 06/26/21 21:30 06/26/21 22:29 DC 06/26/21 21:39 Sodium Chloride 1,000 ml @ 100 mls/hr Q10H STAT IV 06/26/21 21:30 06/27/21 05:42 DC 06/26/21 21:39 Piperacillin Sod/ Tazobactam Sod 3.375 gm/Sodium Chloride 100 ml @ 100 mls/hr Q6H IV 06/26/21 23:00 07/26/21 22:59 06/28/21 10:04 Morphine Sulfate (Morphine Sulfate) 2 mg Q6H PRN IV PAIN 7 - 10 06/27/21 04:00 07/27/21 03:59 06/27/21 06:25 Sodium Chloride 1,000 ml @ 100 mls/hr Q10H IV 06/27/21 00:30 07/27/21 00:29 06/28/21 02:12 Sodium Chloride 1,000 ml @ 100 mls/hr Q10H IV 06/27/21 00:30 06/27/21 05:41 DC Sodium Chloride 100 ml @ STK-MED ONCE IV 06/27/21 06:02 06/27/21 06:03 DC Acetaminophen (Tylenol) 1,000 mg Q6H PRN PO PAIN 1 - 3 06/27/21 15:00 07/27/21 14:59 Albuterol Sulfate (Ventolin) 2.5 mg RTQ2 PRN IH SHORTNESS OF BREATH 06/27/21 15:00 06/27/21 16:22 DC Albuterol/ Ipratropium (Duo 0.5-3(2.5) Mg/3 ml) 3 ml RTQ2 PRN IH SHORTNESS OF BREATH 06/27/21 15:00 07/27/21 14:59 Insulin Human Lispro (Humalog) 0-140 0 Units 141-200... ACHS SQ 06/27/21 17:30 07/27/21 17:29 Dextrose 1,000 ml @ 100 mls/hr Q10H PRN IV hypoglycemia 06/27/21 15:00 07/27/21 14:59 Dextrose (Dextrose 50%-Water Syringe) 25 ml PRN PRN IV hypoglycemia 06/27/21 15:00 07/27/21 14:59 Enoxaparin Sodium (Lovenox) 40 mg Q24HRS SQ 06/27/21 15:30 07/27/21 15:29 06/27/21 16:58 Pantoprazole Sodium (Protonix Iv) 40 mg DAILY IV 06/28/21 09:00 07/28/21 08:59 06/28/21 09:55 Tramadol HCl (Ultram) 50 mg Q6 PRN PO PAIN 4 - 6 06/27/21 17:00 07/27/21 16:59 06/28/21 03:24 Ondansetron HCl (Zofran) 4 mg STK-MED ONCE .ROUTE 06/27/21 16:48 06/27/21 16:48 DC Ondansetron HCl (Zofran) 4 mg Q6 PRN IV NAUSEA / VOMITING 06/27/21 17:00 07/27/21 16:59 06/27/21 17:04 Potassium Chloride 100 ml @ 50 mls/hr STAT STAT IV 06/28/21 08:49 06/28/21 10:05 DC Potassium Chloride (Potassium Chloride) 20 meq OT ONCE PO 06/28/21 09:00 06/28/21 10:05 DC Potassium Chloride (Potassium Chloride) 40 meq OT ONCE PO 06/28/21 10:30 06/28/21 10:34 DC 06/28/21 10:05 Assessment/Plan Assessment/Plan Assessment/Plan Plan Replace potassium Attempts to transfer the patient to a facility where there is interventional radiology available was unsuccessful in the ED. Urologist was consulted. For now we will continue IV antibiotics and monitor the patient, if No improvement, To repeat CT.will continue to try to transfer the patient to a facility with IR. IV fluids IV antibiotic continue with Zosyn , Urine culture growing Proteus and Klebsiella sensitive to Zosyn. Urologist consulted SSI GI and DVT prophylaxis appropriate Problems: (1) Sepsis Status: Acute ICD Code: A41.9 - Sepsis, unspecified organism SNOMED: 79080862 (2) Pyelonephritis Status: Acute ICD Code: N12 - Tubulo-interstitial nephritis, not specified as acute or chronic SNOMED: 86168559 (3) Renal abscess, left Status: Acute ICD Code: N15.1 - Renal and perinephric abscess SNOMED: 5359534 (4) Diabetes mellitus ICD Code: E11.9 - Type 2 diabetes mellitus without complications SNOMED: 99323360 Problem Qualifiers (1) Sepsis: Sepsis type: sepsis due to unspecified organism Sepsis acute organ dysfunction status: unspecified Qualified Codes: A41.9 - Sepsis, unspecified organism ANSELMO MORGAN MD Jun 28, 2021 12:25
[2021-06-28] MEDS ORDERED: DEXTROSE 10%-WATER IV SOLUTION IV PRN (14:26)
[2021-06-28 15:48] VITALS: BP 114/71
[2021-06-28] MEDS: LOVENOX SQ SCH (16:29)
[2021-06-28 20:05] VITALS: BP 116/56
[2021-06-29 00:15] VITALS: BP 153/51
[2021-06-29] MEDS ORDERED: KCL 20MEQ/100ML 100 ML IV ONE (00:47)
[2021-06-29] MEDS ORDERED: POTASSIUM CHLORIDE PO ONE (01:00)
[2021-06-29 03:45] VITALS: BP 127/59
[2021-06-29] MEDS: NS 1000ML 1,000 ML IV SCH ×3 (03:53→21:50)
[2021-06-29] MEDS: ZOSYN 3.375 GM 3.375 GM in NS 100ML 100 ML IV SCH ×4 (05:33→23:00)
[2021-06-29 07:10] LABS: BASOPHIL % 0.4 % (0.0-0.2); EOSINOPHIL # 0.2 10^3/uL (0.0-0.2); EOSINOPHIL % 1.9 % (0.0-5.0); LYMPHOCYTES # 1.02 10^3/uL1 (1.0-4.8); LYMPHOCYTES % 10.9 % (24.0-44.0); MEAN CORP HGB 31.6 pg (26-34); MONOCYTES # 0.9 10^3/uL (0.3-0.8); MONOCYTES % 9.7 % (5.0-12.0); NEUTROPHIL # 7.2 10^3/uL (1.8-7.7); NEUTROPHILS % 76.8 % (41.0-85.0); PLATELET COUNT 248 10^3/uL (150-400); RED CELL DISTRIBUTION WIDTH 13.9 % (11.5-14.5)
[2021-06-29] MEDS: HUMALOG SQ SCH ×4 (07:30→21:00)
[2021-06-29 07:32] LABS: CARBON DIOXIDE 31.4 mmol/L (20.0-32)
[2021-06-29 08:47] VITALS: BP 161/56
[2021-06-29] MEDS: PROTONIX IV IV SCH (10:13)
--- NOTE | 2021-06-29 11:08 | PRM.PN ---
Subjective Subjective Date: Jun 29, 2021 Time: 11:06 Subjective Patient seen at bedside discussed plan to place midline for approximately 2 weeks of IV antibiotics was planned repeat CT in 2 weeks outpatient to monitor for worsening or resolution of potential small kidney abscess Patient History: Alzheimer's disease G8 FATHER, Age:87 Cardiac pacemaker G8 BROTHER Diabetes mellitus G8 FATHER, Age:87 FH: coronary artery bypass surgery G8 FATHER, Age:87 FH: coronary artery disease G8 FATHER, Age:87 FH: heart disease G8 FATHER, Age:87 G8 BROTHER 19 CHILD, , Age:39, Onset:19 FH: prostate cancer G8 BROTHER Hypertension G8 MOTHER, , Age:86 G8 FATHER, Age:87 19 CHILD, , Age:39 No known health problems G8 BROTHER 19 CHILD No Family History of: Asthma Cerebrovascular disorder Chronic obstructive pulmonary disease Congestive heart failure Diabetes insipidus Parkinson's disease VTE VTE Risk Total Score: 5 VTE Risk Score VTE Risk: Score 0-1 = Low Risk (Aggressive mobilization; early ambulation; no VTE prophylaxis required) Score 2: Moderate Risk (Intermittent/Pneumatic Compression Device OR Lovenox/Heparin/Coumadin) Score 3-4: High Risk (Intermittent/Pneumatic Compression Device AND Lovenox/Heparin/Coumadin) Score > or =5: Highest Risk (Intermittent/Pneumatic Compression Device AND Lovenox/Heparin/Coumadin) Review of Systems Constitutional: Chills, Weakness Eyes: No: Pain, Vision change, Conjunctivae inflammation, Eyelid inflammation, Other, Redness ENT: No: Ear pain, Ear discharge, Nose pain, Nose discharge, Nose congestion, Mouth pain, Mouth swelling, Throat pain, Throat swelling, Other Respiratory: Shortness of breath Cardiovascular: No: Chest Pain, Palpitations, Orthopnea, Paroxysmal Noc. Dyspnea, Edema, Lt Headedness, Other Gastrointestinal: Nausea Genitourinary: Dysuria, Other (Flank pain) Musculoskeletal: No: other, neck pain, shoulder pain, arm pain, back pain, hand pain, leg pain, foot pain Skin: No: Rash, Lesions, Jaundice, Bruising, Other Neurological: Weakness Allergies: Coded Allergies: lorazepam (Verified Allergy, Severe, Anaphylaxis Shock, 10/29/20) clindamycin (Verified Allergy, Unknown, FULL BODY RASH, ITCHING, 10/29/20) Scheduled Alendronate Sodium (Fosamax), 70 MG PO Q7D, (Reported) Alprazolam (Xanax), 1 TAB PO BID, (Reported) Aspirin (Aspirin), 1 TAB PO DAILY, (Reported) Atorvastatin 40MG (Lipitor 40MG), 1 TAB PO HS, (Reported) Calcium Carb & Cit/Vitamin D3 (Calcium + D3 Er Tablet), 1 EACH PO TID, (Reported) Cyanocobalamin (Vitamin B-12) (Vitamin B12), 2 TAB PO QD, (Reported) Ergocalciferol (Vitamin D2) (Vitamin D2), 1 CAP PO Q7D, (Reported) Fluticasone/Vilanterol (Breo Ellipta 200-25 Mcg INH), 1 EACH IH DAILY24, (Reported) Furosemide (Furosemide), 1 TAB PO DAILY, (Reported) Isosorbide Mononitrate (Isosorbide Mononitrate Er), 1 TAB PO DAILY, (Reported) Levothyroxine Sodium (Levothyroxine Sodium), 1 TAB PO DAILY, (Reported) Linaclotide (Linzess), 145 MCG PO DAILY24, (Reported) Lisinopril (Prinivil), 5 MG PO DAILY24, (Reported) Magnesium Oxide (Magnesium Oxide), 1 TAB PO DAILY, (Reported) Metformin Hcl (Metformin Hcl), 1 TAB PO DAILY24, (Reported) Metoprolol Tartrate 25MG (Lopresser 25MG), 0.5 TAB PO BID, (Reported) Mirtazapine (Remeron), 45 MG PO HS, (Reported) Potassium Chloride (Potassium Chloride), 1 TAB PO DAILY, (Reported) Venlafaxine Hcl (Effexor Xr), 225 MG PO DAILY24, (Reported) Scheduled PRN Albuterol Sulfate (Proair Hfa), 2 PUFF IH Q6 PRN for SHORTNESS OF BREATH, (Repo rted) Prednisone (Prednisone), 0.5 TAB PO DAILY PRN for CONGESTION, (Reported) [Duoneb], 1 DOSE.PACK IH Q6 PRN for SHORTNESS OF BREATH, (Reported) Objective Vitals and I/O Vital Sign - Last 24 Hours 06/29/21 06/29/21 08:05 08:47 Temp 98.4 Pulse 84 101 Resp 16 19 B/P (MAP) 161/56 (91) Pulse Ox 100 95 O2 Delivery Nasal Cannula O2 Flow Rate 2.00 FiO2 28 General: Alert, No acute distress, moderate distress HEENT: Atraumatic, PERRLA, EOMI, Mucous membr. moist/pink, Other Neck: No JVD, No thyromegaly Lungs: Other (Diminished air entry bilaterally) Heart: Regular rate, Normal S1, Normal S2 Abdomen: Normal bowel sounds, Soft, No tenderness Extremities: No clubbing, No cyanosis Neuro: Normal tone, Sensation intact Psych/Mental Status: Mental status NL, Mood NL, Other All Results(Lab/Rad) Laboratory Tests Test 06/27/21 16:22 06/27/21 21:09 06/28/21 07:40 06/28/21 11:57 Bedside Glucose 122 106 163 White Blood Count 12.9 10^3/uL Red Blood Count 3.52 10^6/uL Hemoglobin 11.1 g/dL Hematocrit 35.4 % Mean Corpuscular Volume 100.6 fL Mean Corpuscular Hemoglobin 31.5 pg Mean Corpuscular Hemoglobin Concent 31.4 g/dL Red Cell Distribution Width 14.0 % Platelet Count 205 10^3/uL Mean Platelet Volume 11.1 fL Neutrophils (%) (Auto) 85.5 % Lymphocytes (%) (Auto) 5.2 % Monocytes (%) (Auto) 8.2 % Neutrophils # (Auto) 11.0 10^3/uL Lymphocytes # (Auto) 0.67 10^3/uL1 Monocytes # (Auto) 1.1 10^3/uL Absolute Immature Granulocyte (auto 0.05 10^3 u/L Absolute Eosinophils (auto) 0.1 10^3/uL Immature Granulocytes % 0.40 % Eosinophils % 0.4 % Basophils % 0.3 % Basophils # 0.0 10^3/uL Sodium Level 129 mmol/L Potassium Level 3.1 mmol/L Chloride Level 98.0 mmol/L Carbon Dioxide Level 24.6 mmol/L Anion Gap 9.5 Blood Urea Nitrogen 5 mg/dL Creatinine 0.76 mg/dL Estimated GFR () 91.3 Est GFR (CKD-EPI)(Non-Afr Albanian) 75.5 BUN/Creatinine Ratio 6.0 Glucose Level 120 mg/dL Calcium Level 7.4 mg/dL Total Bilirubin 0.5 mg/dL Aspartate Amino Transf (AST/SGOT) 31 U/L Alanine Aminotransferase (ALT/SGPT) 32 U/L Alkaline Phosphatase 96 U/L Total Protein 5.6 g/dL Albumin 1.9 g/dL Globulin 3.7 Albumin/Globulin Ratio 0.513 Current Medications Medications (Trade) Dose Ordered Sig/Bird Route PRN Reason Start Time Stop Time Status Last Admin Dose Admin Sodium Chloride 1,000 ml @ 1,000 mls/hr Q1H STAT IV 06/26/21 18:58 06/26/21 19:57 DC 06/26/21 19:14 Sodium Chloride 1,000 ml @ ud STK-MED ONCE .ROUTE 06/26/21 18:59 06/26/21 19:00 DC Sodium Chloride 1,000 ml @ STK-MED ONCE .ROUTE 06/26/21 21:27 06/26/21 21:27 DC Sodium Chloride 100 ml @ ud STK-MED ONCE IV 06/26/21 21:28 06/26/21 21:28 DC Piperacillin Sod/ Tazobactam Sod 3.375 gm/Sodium Chloride 100 ml @ 100 mls/hr STAT STAT IV 06/26/21 21:30 06/26/21 22:29 DC 06/26/21 21:39 Sodium Chloride 1,000 ml @ 100 mls/hr Q10H STAT IV 06/26/21 21:30 06/27/21 05:42 DC 06/26/21 21:39 Piperacillin Sod/ Tazobactam Sod 3.375 gm/Sodium Chloride 100 ml @ 100 mls/hr Q6H IV 06/26/21 23:00 07/26/21 22:59 06/28/21 10:04 Morphine Sulfate (Morphine Sulfate) 2 mg Q6H PRN IV PAIN 7 - 10 06/27/21 04:00 07/27/21 03:59 06/27/21 06:25 Sodium Chloride 1,000 ml @ 100 mls/hr Q10H IV 06/27/21 00:30 07/27/21 00:29 06/28/21 02:12 Sodium Chloride 1,000 ml @ 100 mls/hr Q10H IV 06/27/21 00:30 06/27/21 05:41 DC Sodium Chloride 100 ml @ ud STK-MED ONCE IV 06/27/21 06:02 06/27/21 06:03 DC Acetaminophen (Tylenol) 1,000 mg Q6H PRN PO PAIN 1 - 3 06/27/21 15:00 07/27/21 14:59 Albuterol Sulfate (Ventolin) 2.5 mg RTQ2 PRN IH SHORTNESS OF BREATH 06/27/21 15:00 06/27/21 16:22 DC Albuterol/ Ipratropium (Duo 0.5-3(2.5) Mg/3 ml) 3 ml RTQ2 PRN IH SHORTNESS OF BREATH 06/27/21 15:00 07/27/21 14:59 Insulin Human Lispro (Humalog) 0-140 0 Units 141-200... ACHS SQ 06/27/21 17:30 07/27/21 17:29 Dextrose 1,000 ml @ 100 mls/hr Q10H PRN IV hypoglycemia 06/27/21 15:00 07/27/21 14:59 Dextrose (Dextrose 50%-Water Syringe) 25 ml PRN PRN IV hypoglycemia 06/27/21 15:00 07/27/21 14:59 Enoxaparin Sodium (Lovenox) 40 mg Q24HRS SQ 06/27/21 15:30 07/27/21 15:29 06/27/21 16:58 Pantoprazole Sodium (Protonix Iv) 40 mg DAILY IV 06/28/21 09:00 07/28/21 08:59 06/28/21 09:55 Tramadol HCl (Ultram) 50 mg Q6 PRN PO PAIN 4 - 6 06/27/21 17:00 07/27/21 16:59 06/28/21 03:24 Ondansetron HCl (Zofran) 4 mg STK-MED ONCE .ROUTE 06/27/21 16:48 06/27/21 16:48 DC Ondansetron HCl (Zofran) 4 mg Q6 PRN IV NAUSEA / VOMITING 06/27/21 17:00 07/27/21 16:59 06/27/21 17:04 Potassium Chloride 100 ml @ 50 mls/hr STAT STAT IV 06/28/21 08:49 06/28/21 10:05 DC Potassium Chloride (Potassium Chloride) 20 meq OT ONCE PO 06/28/21 09:00 06/28/21 10:05 DC Potassium Chloride (Potassium Chloride) 40 meq OT ONCE PO 06/28/21 10:30 06/28/21 10:34 DC 06/28/21 10:05 Course Sepsis Screening Results: Posi: POSITIVE Sepsis Qualifier/Stage: SEPSIS RISK Duration or Total Time Spent w: 60 min Vitals & review Data Vital Sign - Last 24 Hours 06/29/21 06/29/21 08:05 08:47 Temp 98.4 Pulse 84 101 Resp 16 19 B/P (MAP) 161/56 (91) Pulse Ox 100 95 O2 Delivery Nasal Cannula O2 Flow Rate 2.00 FiO2 28 Laboratory Tests Test 06/27/21 11:58 06/27/21 16:22 06/27/21 21:09 06/28/21 07:40 Bedside Glucose 105 122 106 White Blood Count 12.9 10^3/uL Red Blood Count 3.52 10^6/uL Hemoglobin 11.1 g/dL Hematocrit 35.4 % Mean Corpuscular Volume 100.6 fL Mean Corpuscular Hemoglobin 31.5 pg Mean Corpuscular Hemoglobin Concent 31.4 g/dL Red Cell Distribution Width 14.0 % Platelet Count 205 10^3/uL Mean Platelet Volume 11.1 fL Neutrophils (%) (Auto) 85.5 % Lymphocytes (%) (Auto) 5.2 % Monocytes (%) (Auto) 8.2 % Neutrophils # (Auto) 11.0 10^3/uL Lymphocytes # (Auto) 0.67 10^3/uL1 Monocytes # (Auto) 1.1 10^3/uL Absolute Immature Granulocyte (auto 0.05 10^3 u/L Absolute Eosinophils (auto) 0.1 10^3/uL Immature Granulocytes % 0.40 % Eosinophils % 0.4 % Basophils % 0.3 % Basophils # 0.0 10^3/uL Sodium Level 129 mmol/L Potassium Level 3.1 mmol/L Chloride Level 98.0 mmol/L Carbon Dioxide Level 24.6 mmol/L Anion Gap 9.5 Blood Urea Nitrogen 5 mg/dL Creatinine 0.76 mg/dL Estimated GFR () 91.3 Est GFR (CKD-EPI)(Non-Afr Albanian) 75.5 BUN/Creatinine Ratio 6.0 Glucose Level 120 mg/dL Calcium Level 7.4 mg/dL Total Bilirubin 0.5 mg/dL Aspartate Amino Transf (AST/SGOT) 31 U/L Alanine Aminotransferase (ALT/SGPT) 32 U/L Alkaline Phosphatase 96 U/L Total Protein 5.6 g/dL Albumin 1.9 g/dL Globulin 3.7 Albumin/Globulin Ratio 0.513 Test 06/28/21 11:57 06/28/21 17:04 06/28/21 20:10 06/29/21 06:11 Bedside Glucose 163 101 126 White Blood Count 9.4 10^3/uL Red Blood Count 3.51 10^6/uL Hemoglobin 11.1 g/dL Hematocrit 35.3 % Mean Corpuscular Volume 100.6 fL Mean Corpuscular Hemoglobin 31.6 pg Mean Corpuscular Hemoglobin Concent 31.4 g/dL Red Cell Distribution Width 13.9 % Platelet Count 248 10^3/uL Mean Platelet Volume 11.7 fL Neutrophils (%) (Auto) 76.8 % Lymphocytes (%) (Auto) 10.9 % Monocytes (%) (Auto) 9.7 % Neutrophils # (Auto) 7.2 10^3/uL Lymphocytes # (Auto) 1.02 10^3/uL1 Monocytes # (Auto) 0.9 10^3/uL Absolute Immature Granulocyte (auto 0.03 10^3 u/L Absolute Eosinophils (auto) 0.2 10^3/uL Immature Granulocytes % 0.30 % Eosinophils % 1.9 % Basophils % 0.4 % Basophils # 0.0 10^3/uL Sodium Level 137 mmol/L Potassium Level 3.6 mmol/L Chloride Level 101.0 mmol/L Carbon Dioxide Level 31.4 mmol/L Anion Gap 8.2 Blood Urea Nitrogen 4 mg/dL Creatinine 0.77 mg/dL Estimated GFR () 89.9 Est GFR (CKD-EPI)(Non-Afr Albanian) 74.3 BUN/Creatinine Ratio 5.0 Glucose Level 102 mg/dL Calcium Level 7.6 mg/dL Total Bilirubin 0.3 mg/dL Aspartate Amino Transf (AST/SGOT) 29 U/L Alanine Aminotransferase (ALT/SGPT) 36 U/L Alkaline Phosphatase 81 U/L Total Protein 5.4 g/dL Albumin 1.7 g/dL Globulin 3.7 Albumin/Globulin Ratio 0.459 Procalcitonin 0.13 ng/mL Current Medications Medications (Trade) Dose Ordered Sig/Bird PRN Reason Start Time Stop Time Status Last Admin Acetaminophen (Tylenol) 1,000 mg Q6H PRN PAIN 1 - 3 06/27/21 15:00 07/27/21 14:59 06/29/21 00:05 Albuterol/ Ipratropium (Duo 0.5-3(2.5) Mg/3 ml) 3 ml RTQ2 PRN SHORTNESS OF BREATH 06/27/21 15:00 07/27/21 14:59 Dextrose 1,000 ml @ 100 mls/hr Q10H PRN hypoglycemia 06/27/21 15:00 07/27/21 14:59 Dextrose (Dextrose 10%-Water Iv Solution) 125 ml PRN PRN hypoglycemia 06/28/21 14:26 07/27/21 14:59 Enoxaparin Sodium (Lovenox) 40 mg Q24HRS 06/27/21 15:30 07/27/21 15:29 06/28/21 16:29 Insulin Human Lispro (Humalog) 0-140 0 Units 141-200... ACHS 06/27/21 17:30 07/27/21 17:29 06/28/21 12:55 Morphine Sulfate (Morphine Sulfate) 2 mg Q6H PRN PAIN 7 - 10 06/27/21 04:00 07/27/21 03:59 06/27/21 06:25 Ondansetron HCl (Zofran) 4 mg Q6 PRN NAUSEA / VOMITING 06/27/21 17:00 07/27/21 16:59 06/27/21 17:04 Pantoprazole Sodium (Protonix Iv) 40 mg DAILY 06/28/21 09:00 07/28/21 08:59 06/29/21 10:13 Piperacillin Sod/ Tazobactam Sod 3.375 gm/Sodium Chloride 100 ml @ 100 mls/hr Q6H 06/26/21 23:00 07/26/21 22:59 06/29/21 10:13 Sodium Chloride 1,000 ml @ 100 mls/hr Q10H 06/27/21 00:30 07/27/21 00:29 06/28/21 16:29 Tramadol HCl (Ultram) 50 mg Q6 PRN PAIN 4 - 6 06/27/21 17:00 07/27/21 16:59 06/28/21 03:24 LEVEL 1 SEPSIS INFECTION CRITE: ABX Therapy, Urinary Tract Infection LEVEL 2-SIRS (LIST ALL THAT AP: None/Not assessed Cardiovascular Evidence: Not Assessed or None Hematologic Evidence: None/Not assessed Hepatic Evidence: None/Not assessed Metabolic Evidence: None/Not assessed Neurological Evidence: None/Not assessed Respiratory Evidence: Need for O2 to keep>90%, O2 SAT<90room air Renal Evidence: None/Not assessed O2 Sat by Pulse Oximetry: 95 Respiratory End-tidal CO2: 51 Oxygen Flow Rate: 2.00 Assessment/Plan Assessment/Plan Assessment/Plan Plan Replace potassium continue IV antibiotics and monitor the patient IV fluids IV antibiotic continue with Zosyn , Urine culture growing Proteus and Klebsiella sensitive to Zosyn. But both are also sensitive to ceftriaxone Urologist consulted Recommended treating pyelonephritis with IV antibiotics and rechecking abscess on CT after antibiotics if improving no intervention if still present consider outpatient IR drainage SSI GI and DVT prophylaxis appropriate Full code AHSAN THOMAS MD Jun 29, 2021 11:08
[2021-06-29 11:47] VITALS: BP 122/60
[2021-06-29 15:22] VITALS: BP 116/73
[2021-06-29] MEDS: LOVENOX SQ SCH (16:00)
[2021-06-29 21:11] VITALS: BP 138/94
[2021-06-30 00:38] VITALS: BP 147/74
[2021-06-30 04:26] VITALS: BP 131/73
[2021-06-30] MEDS: ZOSYN 3.375 GM 3.375 GM in NS 100ML 100 ML IV SCH ×2 (04:38→11:10)
[2021-06-30 04:57] LABS: BASOPHIL % 0.5 % (0.0-0.2); EOSINOPHIL # 0.2 10^3/uL (0.0-0.2); EOSINOPHIL % 1.9 % (0.0-5.0); LYMPHOCYTES # 1.11 10^3/uL1 (1.0-4.8); LYMPHOCYTES % 13.9 % (24.0-44.0); MEAN CORP HGB 31.2 pg (26-34); MONOCYTES # 0.7 10^3/uL (0.3-0.8); MONOCYTES % 9.3 % (5.0-12.0); NEUTROPHIL # 5.9 10^3/uL (1.8-7.7); PLATELET COUNT 290 10^3/uL (150-400); RED CELL DISTRIBUTION WIDTH 13.8 % (11.5-14.5)
--- NOTE | 2021-06-30 06:16 | PRM.PN ---
Subjective Subjective Date: Jun 30, 2021 Time: 06:15 Subjective Discussed the plan with the patient and her family to continue IV antibiotics for 2 weeks and then to repeat CT scan to ensure resolution of infection. Discussed that she may need drainage of potential abscess if still present on CT scan in 2 weeks through IR in [place] Patient History: Alzheimer's disease G8 FATHER, Age:87 Cardiac pacemaker G8 BROTHER Diabetes mellitus G8 FATHER, Age:87 FH: coronary artery bypass surgery G8 FATHER, Age:87 FH: coronary artery disease G8 FATHER, Age:87 FH: heart disease G8 FATHER, Age:87 G8 BROTHER 19 CHILD, , Age:39, Onset:19 FH: prostate cancer G8 BROTHER Hypertension G8 MOTHER, , Age:86 G8 FATHER, Age:87 19 CHILD, , Age:39 No known health problems G8 BROTHER 19 CHILD No Family History of: Asthma Cerebrovascular disorder Chronic obstructive pulmonary disease Congestive heart failure Diabetes insipidus Parkinson's disease VTE VTE Risk Total Score: 5 VTE Risk Score VTE Risk: Score 0-1 = Low Risk (Aggressive mobilization; early ambulation; no VTE prophylaxis required) Score 2: Moderate Risk (Intermittent/Pneumatic Compression Device OR Lovenox/Heparin/Coumadin) Score 3-4: High Risk (Intermittent/Pneumatic Compression Device AND Lovenox/Heparin/Coumadin) Score > or =5: Highest Risk (Intermittent/Pneumatic Compression Device AND Lovenox/Heparin/Coumadin) Review of Systems Constitutional: No: Fever, Chills, Sweats, Weakness, Malaise, Other Eyes: No: Pain, Vision change, Conjunctivae inflammation, Eyelid inflammation, Other, Redness ENT: No: Ear pain, Ear discharge, Nose pain, Nose discharge, Nose congestion, Mouth pain, Mouth swelling, Throat pain, Throat swelling, Other Respiratory: No: Cough, Dry, Shortness of breath, SOB with excertion, Wheezing, Hemoptysis, Pleuritic Pain, Sputum, Wheezing, Other Cardiovascular: No: Chest Pain, Palpitations, Orthopnea, Paroxysmal Noc. Dyspnea, Edema, Lt Headedness, Other Gastrointestinal: No: Nausea, Vomiting, Abdominal Pain, Diarrhea, Constipation, Melena, Hematochezia, Other Genitourinary: No Dysuria, No Other Musculoskeletal: No: other, neck pain, shoulder pain, arm pain, back pain, hand pain, leg pain, foot pain Skin: No: Rash, Lesions, Jaundice, Bruising, Other Neurological: No: Weakness, Numbness, Incoordination, Change in speech, Co nfusion, Seizures, Other Allergies: Coded Allergies: lorazepam (Verified Allergy, Severe, Anaphylaxis Shock, 10/29/20) clindamycin (Verified Allergy, Unknown, FULL BODY RASH, ITCHING, 10/29/20) Scheduled Alendronate Sodium (Fosamax), 70 MG PO Q7D, (Reported) Alprazolam (Xanax), 1 TAB PO BID, (Reported) Aspirin (Aspirin), 1 TAB PO DAILY, (Reported) Atorvastatin 40MG (Lipitor 40MG), 1 TAB PO HS, (Reported) Calcium Carb & Cit/Vitamin D3 (Calcium + D3 Er Tablet), 1 EACH PO TID, (Reported) Ceftriaxone Na/Dextrose,Iso (Ceftriaxone 1 Gm-D5w Bag), 1 GM IV DAILY24 Cyanocobalamin (Vitamin B-12) (Vitamin B12), 2 TAB PO QD, (Reported) Ergocalciferol (Vitamin D2) (Vitamin D2), 1 CAP PO Q7D, (Reported) Fluticasone/Vilanterol (Breo Ellipta 200-25 Mcg INH), 1 EACH IH DAILY24, (Reported) Furosemide (Furosemide), 1 TAB PO DAILY, (Reported) Isosorbide Mononitrate (Isosorbide Mononitrate Er), 1 TAB PO DAILY, (Reported) Levothyroxine Sodium (Levothyroxine Sodium), 1 TAB PO DAILY, (Reported) Linaclotide (Linzess), 145 MCG PO DAILY24, (Reported) Lisinopril (Prinivil), 5 MG PO DAILY24, (Reported) Magnesium Oxide (Magnesium Oxide), 1 TAB PO DAILY, (Reported) Metformin Hcl (Metformin Hcl), 1 TAB PO DAILY24, (Reported) Metoprolol Tartrate 25MG (Lopresser 25MG), 0.5 TAB PO BID, (Reported) Mirtazapine (Remeron), 45 MG PO HS, (Reported) Potassium Chloride (Potassium Chloride), 1 TAB PO DAILY, (Reported) Venlafaxine Hcl (Effexor Xr), 225 MG PO DAILY24, (Reported) Scheduled PRN Albuterol Sulfate (Proair Hfa), 2 PUFF IH Q6 PRN for SHORTNESS OF BREATH, (Reported) Prednisone (Prednisone), 0.5 TAB PO DAILY PRN for CONGESTION, (Reported) [Duoneb], 1 DOSE.PACK IH Q6 PRN for SHORTNESS OF BREATH, (Reported) Objective General: Alert, Oriented X3, No acute distress HEENT: Atraumatic, PERRLA, EOMI, Mucous membr. moist/pink, Other Neck: No JVD, No thyromegaly Lungs: Other (Diminished air entry bilaterally) Heart: Regular rate, Normal S1, Normal S2 Abdomen: Normal bowel sounds, Soft, No tenderness Extremities: No clubbing, No cyanosis Neuro: Normal tone, Sensation intact Psych/Mental Status: Mental status NL, Mood NL, Other All Results(Lab/Rad) Laboratory Tests Test 06/27/21 16:22 06/27/21 21:09 06/28/21 07:40 06/28/21 11:57 Bedside Glucose 122 106 163 White Blood Count 12.9 10^3/uL Red Blood Count 3.52 10^6/uL Hemoglobin 11.1 g/dL Hematocrit 35.4 % Mean Corpuscular Volume 100.6 fL Mean Corpuscular Hemoglobin 31.5 pg Mean Corpuscular Hemoglobin Concent 31.4 g/dL Red Cell Distribution Width 14.0 % Platelet Count 205 10^3/uL Mean Platelet Volume 11.1 fL Neutrophils (%) (Auto) 85.5 % Lymphocytes (%) (Auto) 5.2 % Monocytes (%) (Auto) 8.2 % Neutrophils # (Auto) 11.0 10^3/uL Lymphocytes # (Auto) 0.67 10^3/uL1 Monocytes # (Auto) 1.1 10^3/uL Absolute Immature Granulocyte (auto 0.05 10^3 u/L Absolute Eosinophils (auto) 0.1 10^3/uL Immature Granulocytes % 0.40 % Eosinophils % 0.4 % Basophils % 0.3 % Basophils # 0.0 10^3/uL Sodium Level 129 mmol/L Potassium Level 3.1 mmol/L Chloride Level 98.0 mmol/L Carbon Dioxide Level 24.6 mmol/L Anion Gap 9.5 Blood Urea Nitrogen 5 mg/dL Creatinine 0.76 mg/dL Estimated GFR () 91.3 Est GFR (CKD-EPI)(Non-Afr French) 75.5 BUN/Creatinine Ratio 6.0 Glucose Level 120 mg/dL Calcium Level 7.4 mg/dL Total Bilirubin 0.5 mg/dL Aspartate Amino Transf (AST/SGOT) 31 U/L Alanine Aminotransferase (ALT/SGPT) 32 U/L Alkaline Phosphatase 96 U/L Total Protein 5.6 g/dL Albumin 1.9 g/dL Globulin 3.7 Albumin/Globulin Ratio 0.513 Current Medications Medications (Trade) Dose Ordered Sig/Bird Route PRN Reason Start Time Stop Time Status Last Admin Dose Admin Sodium Chloride 1,000 ml @ 1,000 mls/hr Q1H STAT IV 06/26/21 18:58 06/26/21 19:57 DC 06/26/21 19:14 Sodium Chloride 1,000 ml @ ud STK-MED ONCE .ROUTE 06/26/21 18:59 06/26/21 19:00 DC Sodium Chloride 1,000 ml @ ud STK-MED ONCE .ROUTE 06/26/21 21:27 06/26/21 21:27 DC Sodium Chloride 100 ml @ ud STK-MED ONCE IV 06/26/21 21:28 06/26/21 21:28 DC Piperacillin Sod/ Tazobactam Sod 3.375 gm/Sodium Chloride 100 ml @ 100 mls/hr STAT STAT IV 06/26/21 21:30 06/26/21 22:29 DC 06/26/21 21:39 Sodium Chloride 1,000 ml @ 100 mls/hr Q10H STAT IV 06/26/21 21:30 06/27/21 05:42 DC 06/26/21 21:39 Piperacillin Sod/ Tazobactam Sod 3.375 gm/Sodium Chloride 100 ml @ 100 mls/hr Q6H IV 06/26/21 23:00 07/26/21 22:59 06/28/21 10:04 Morphine Sulfate (Morphine Sulfate) 2 mg Q6H PRN IV PAIN 7 - 10 06/27/21 04:00 07/27/21 03:59 06/27/21 06:25 Sodium Chloride 1,000 ml @ 100 mls/hr Q10H IV 06/27/21 00:30 07/27/21 00:29 06/28/21 02:12 Sodium Chloride 1,000 ml @ 100 mls/hr Q10H IV 06/27/21 00:30 06/27/21 05:41 DC Sodium Chloride 100 ml @ ud STK-MED ONCE IV 06/27/21 06:02 06/27/21 06:03 DC Acetaminophen (Tylenol) 1,000 mg Q6H PRN PO PAIN 1 - 3 06/27/21 15:00 07/27/21 14:59 Albuterol Sulfate (Ventolin) 2.5 mg RTQ2 PRN IH SHORTNESS OF BREATH 06/27/21 15:00 06/27/21 16:22 DC Albuterol/ Ipratropium (Duo 0.5-3(2.5) Mg/3 ml) 3 ml RTQ2 PRN IH SHORTNESS OF BREATH 06/27/21 15:00 07/27/21 14:59 Insulin Human Lispro (Humalog) 0-140 0 Units 141-200... ACHS SQ 06/27/21 17:30 07/27/21 17:29 Dextrose 1,000 ml @ 100 mls/hr Q10H PRN IV hypoglycemia 06/27/21 15:00 07/27/21 14:59 Dextrose (Dextrose 50%-Water Syringe) 25 ml PRN PRN IV hypoglycemia 06/27/21 15:00 07/27/21 14:59 Enoxaparin Sodium (Lovenox) 40 mg Q24HRS SQ 06/27/21 15:30 07/27/21 15:29 06/27/21 16:58 Pantoprazole Sodium (Protonix Iv) 40 mg DAILY IV 06/28/21 09:00 07/28/21 08:59 06/28/21 09:55 Tramadol HCl (Ultram) 50 mg Q6 PRN PO PAIN 4 - 6 06/27/21 17:00 07/27/21 16:59 06/28/21 03:24 Ondansetron HCl (Zofran) 4 mg STK-MED ONCE .ROUTE 06/27/21 16:48 06/27/21 16:48 DC Ondansetron HCl (Zofran) 4 mg Q6 PRN IV NAUSEA / VOMITING 06/27/21 17:00 07/27/21 16:59 06/27/21 17:04 Potassium Chloride 100 ml @ 50 mls/hr STAT STAT IV 06/28/21 08:49 06/28/21 10:05 DC Potassium Chloride (Potassium Chloride) 20 meq OT ONCE PO 06/28/21 09:00 06/28/21 10:05 DC Potassium Chloride (Potassium Chloride) 40 meq OT ONCE PO 06/28/21 10:30 06/28/21 10:34 DC 06/28/21 10:05 Course Sepsis Screening Results: Posi: POSITIVE Sepsis Qualifier/Stage: SEPSIS RISK Duration or Total Time Spent w: 60 min Vitals & review Data Vital Sign - Last 24 Hours 06/29/21 06/29/21 08:05 08:47 Temp 98.4 Pulse 84 101 Resp 16 19 B/P (MAP) 161/56 (91) Pulse Ox 100 95 O2 Delivery Nasal Cannula O2 Flow Rate 2.00 FiO2 28 Laboratory Tests Test 06/27/21 11:58 06/27/21 16:22 06/27/21 21:09 06/28/21 07:40 Bedside Glucose 105 122 106 White Blood Count 12.9 10^3/uL Red Blood Count 3.52 10^6/uL Hemoglobin 11.1 g/dL Hematocrit 35.4 % Mean Corpuscular Volume 100.6 fL Mean Corpuscular Hemoglobin 31.5 pg Mean Corpuscular Hemoglobin Concent 31.4 g/dL Red Cell Distribution Width 14.0 % Platelet Count 205 10^3/uL Mean Platelet Volume 11.1 fL Neutrophils (%) (Auto) 85.5 % Lymphocytes (%) (Auto) 5.2 % Monocytes (%) (Auto) 8.2 % Neutrophils # (Auto) 11.0 10^3/uL Lymphocytes # (Auto) 0.67 10^3/uL1 Monocytes # (Auto) 1.1 10^3/uL Absolute Immature Granulocyte (auto 0.05 10^3 u/L Absolute Eosinophils (auto) 0.1 10^3/uL Immature Granulocytes % 0.40 % Eosinophils % 0.4 % Basophils % 0.3 % Basophils # 0.0 10^3/uL Sodium Level 129 mmol/L Potassium Level 3.1 mmol/L Chloride Level 98.0 mmol/L Carbon Dioxide Level 24.6 mmol/L Anion Gap 9.5 Blood Urea Nitrogen 5 mg/dL Creatinine 0.76 mg/dL Estimated GFR () 91.3 Est GFR (CKD-EPI)(Non-Afr French) 75.5 BUN/Creatinine Ratio 6.0 Glucose Level 120 mg/dL Calcium Level 7.4 mg/dL Total Bilirubin 0.5 mg/dL Aspartate Amino Transf (AST/SGOT) 31 U/L Alanine Aminotransferase (ALT/SGPT) 32 U/L Alkaline Phosphatase 96 U/L Total Protein 5.6 g/dL Albumin 1.9 g/dL Globulin 3.7 Albumin/Globulin Ratio 0.513 Test 06/28/21 11:57 06/28/21 17:04 06/28/21 20:10 06/29/21 06:11 Bedside Glucose 163 101 126 White Blood Count 9.4 10^3/uL Red Blood Count 3.51 10^6/uL Hemoglobin 11.1 g/dL Hematocrit 35.3 % Mean Corpuscular Volume 100.6 fL Mean Corpuscular Hemoglobin 31.6 pg Mean Corpuscular Hemoglobin Concent 31.4 g/dL Red Cell Distribution Width 13.9 % Platelet Count 248 10^3/uL Mean Platelet Volume 11.7 fL Neutrophils (%) (Auto) 76.8 % Lymphocytes (%) (Auto) 10.9 % Monocytes (%) (Auto) 9.7 % Neutrophils # (Auto) 7.2 10^3/uL Lymphocytes # (Auto) 1.02 10^3/uL1 Monocytes # (Auto) 0.9 10^3/uL Absolute Immature Granulocyte (auto 0.03 10^3 u/L Absolute Eosinophils (auto) 0.2 10^3/uL Immature Granulocytes % 0.30 % Eosinophils % 1.9 % Basophils % 0.4 % Basophils # 0.0 10^3/uL Sodium Level 137 mmol/L Potassium Level 3.6 mmol/L Chloride Level 101.0 mmol/L Carbon Dioxide Level 31.4 mmol/L Anion Gap 8.2 Blood Urea Nitrogen 4 mg/dL Creatinine 0.77 mg/dL Estimated GFR () 89.9 Est GFR (CKD-EPI)(Non-Afr French) 74.3 BUN/Creatinine Ratio 5.0 Glucose Level 102 mg/dL Calcium Level 7.6 mg/dL Total Bilirubin 0.3 mg/dL Aspartate Amino Transf (AST/SGOT) 29 U/L Alanine Aminotransferase (ALT/SGPT) 36 U/L Alkaline Phosphatase 81 U/L Total Protein 5.4 g/dL Albumin 1.7 g/dL Globulin 3.7 Albumin/Globulin Ratio 0.459 Procalcitonin 0.13 ng/mL Current Medications Medications (Trade) Dose Ordered Sig/Bird PRN Reason Start Time Stop Time Status Last Admin Acetaminophen (Tylenol) 1,000 mg Q6H PRN PAIN 1 - 3 06/27/21 15:00 07/27/21 14:59 06/29/21 00:05 Albuterol/ Ipratropium (Duo 0.5-3(2.5) Mg/3 ml) 3 ml RTQ2 PRN SHORTNESS OF BREATH 06/27/21 15:00 07/27/21 14:59 Dextrose 1,000 ml @ 100 mls/hr Q10H PRN hypoglycemia 06/27/21 15:00 07/27/21 14:59 Dextrose (Dextrose 10%-Water Iv Solution) 125 ml PRN PRN hypoglycemia 06/28/21 14:26 07/27/21 14:59 Enoxaparin Sodium (Lovenox) 40 mg Q24HRS 06/27/21 15:30 07/27/21 15:29 06/28/21 16:29 Insulin Human Lispro (Humalog) 0-140 0 Units 141-200... ACHS 06/27/21 17:30 07/27/21 17:29 06/28/21 12:55 Morphine Sulfate (Morphine Sulfate) 2 mg Q6H PRN PAIN 7 - 10 06/27/21 04:00 07/27/21 03:59 06/27/21 06:25 Ondansetron HCl (Zofran) 4 mg Q6 PRN NAUSEA / VOMITING 06/27/21 17:00 07/27/21 16:59 06/27/21 17:04 Pantoprazole Sodium (Protonix Iv) 40 mg DAILY 06/28/21 09:00 07/28/21 08:59 06/29/21 10:13 Piperacillin Sod/ Tazobactam Sod 3.375 gm/Sodium Chloride 100 ml @ 100 mls/hr Q6H 06/26/21 23:00 07/26/21 22:59 06/29/21 10:13 Sodium Chloride 1,000 ml @ 100 mls/hr Q10H 06/27/21 00:30 07/27/21 00:29 06/28/21 16:29 Tramadol HCl (Ultram) 50 mg Q6 PRN PAIN 4 - 6 06/27/21 17:00 07/27/21 16:59 06/28/21 03:24 LEVEL 1 SEPSIS INFECTION CRITE: ABX Therapy, Urinary Tract Infection LEVEL 2-SIRS (LIST ALL THAT AP: None/Not assessed Cardiovascular Evidence: Not Assessed or None Hematologic Evidence: None/Not assessed Hepatic Evidence: None/Not assessed Metabolic Evidence: None/Not assessed Neurological Evidence: None/Not assessed Respiratory Evidence: Need for O2 to keep>90%, O2 SAT<90room air Renal Evidence: None/Not assessed O2 Sat by Pulse Oximetry: 97 Respiratory End-tidal CO2: 51 Oxygen Flow Rate: 3.00 Assessment/Plan Assessment/Plan Assessment/Plan Plan Replace potassium continue IV antibiotics and monitor the patient IV fluids IV antibiotic continue with Zosyn , Urine culture growing Proteus and Klebsiella sensitive to Zosyn. But both are also sensitive to ceftriaxone Urologist consulted Recommended treating pyelonephritis with IV antibiotics and rechecking abscess on CT after antibiotics if improving no intervention if still present consider outpatient IR drainage SSI Patient will discharge on 2 weeks of ceftriaxone IV with repeat CT scan to monitor for resolution of infection with the understanding that she may need interventional radiation drainage if abscess present at that time GI and DVT prophylaxis appropriate Full code AHSAN THOMAS MD Jun 30, 2021 06:16
[2021-06-30] MEDS: HUMALOG SQ SCH ×2 (07:30→13:14)
[2021-06-30 08:24] VITALS: BP 140/73
[2021-06-30] MEDS ORDERED: KLOR-CON 10 PO SCH (09:00)
[2021-06-30] MEDS: PROTONIX IV IV SCH (09:15)
[2021-06-30] MEDS: NS 1000ML 1,000 ML IV SCH (09:16)
[2021-06-30] MEDS ORDERED: EFFEXOR XR PO STA (11:38)
[2021-06-30] MEDS ORDERED: NITROSTAT SL PRN (12:00)
[2021-06-30 12:19] VITALS: BP 136/75
[2021-06-30] MEDS ORDERED: MAG-OX PO SCH (13:00)
[2021-06-30] MEDS ORDERED: ZESTRIL PO SCH (14:30)
[2021-06-30] MEDS ORDERED: BREO ELLIPTA 200-25 MCG INH IH SCH (14:30)
[2021-06-30] MEDS ORDERED: PREDNISONE PO PRN (14:30)
[2021-06-30] MEDS ORDERED: VENTOLIN HFA IH PRN (14:30)
[2021-06-30] MEDS ORDERED: GLUCOPHAGE PO SCH (14:30)
[2021-06-30] MEDS ORDERED: LOPRESSER PO SCH (14:30)
--- NOTE | 2021-06-30 14:32 | NUR ---
DISCHARGE PLANNING - [facility] - SNF PER ID MEETING DAILY - PATIENT REQUIRING IV ABX FOR 2 WEEKS FOLLOWING DISCHARGE. CM VISITED WITH PATIENT ABOUT DISCHARGE PLANS AND NEEDS AND PATIENT REQUIRING IV ABX FOR 2 WEEKS. PATIENT AGREEABLE TO GO TO SNF AFTER DISCHARGE FROM [facility] FOR IV ABX. CM FAXED CLINICALS TO [email or web address] AND SPOKE WITH [facility] AND [email or web address]. CONFIRMED [facility] RECEIVED PATIENT'S CLINICALS.
[2021-06-30] MEDS ORDERED: HEPARIN 500 UNIT/5 ML (100/ML) IV STA (14:58)
[2021-06-30] MEDS ORDERED: DUO 0.5-3(2.5) MG/3 ML IH SCH (15:00)
[2021-06-30] MEDS ORDERED: DUO 0.5-3(2.5) MG/3 ML IH PRN (15:00)
[2021-06-30] MEDS ORDERED: OYSTER SHELL 500-VIT D3 200 TB PO SCH (15:00)
[2021-06-30] MEDS ORDERED: LASIX IV STA (15:04)
[2021-06-30] MEDS ORDERED: CEFT1PIG2 IV (15:12)
--- NOTE | 2021-06-30 15:12 | PRM.DC ---
Discharge Summary Date of Discharge: Jun 30, 2021 Time of Request to Discharge: 15:12 Reason for Visit: Left flank pain Additional Comments 68-year-old female with multiple medical problems including hypertension, diabetes, morbid obesity, COPD, coronary artery disease, congestive heart failure, among others presented to the emergency room with left flank pain. In the emergency room patient had low blood pressure, hypotensive. Work-up patient was found to have left pyelonephritis with possible abscess. Attempts to transfer the patient to medical facility where there is interventional radiology available was attempted but unsuccessful due to nonavailability of beds. Patient is on IV fluids. IV antibiotic. Patient was admitted to the intensive care unit for further management. Patient improved significantly with IV antibiotics exam improved labs improved patient stable for discharge with continued IV antibiotics and repeat CT scan in 2 weeks to evaluate for residual abscess or need for IR drainage patient and family were in agreement with this plan when it was discussed with them prior to discharge Patient History: Alzheimer's disease G8 FATHER, Age:87 Cardiac pacemaker G8 BROTHER Diabetes mellitus G8 FATHER, Age:87 FH: coronary artery bypass surgery G8 FATHER, Age:87 FH: coronary artery disease G8 FATHER, Age:87 FH: heart disease G8 FATHER, Age:87 G8 BROTHER 19 CHILD, , Age:39, Onset:19 FH: prostate cancer G8 BROTHER Hypertension G8 MOTHER, , Age:86 G8 FATHER, Age:87 19 CHILD, , Age:39 No known health problems G8 BROTHER 19 CHILD No Family History of: Asthma Cerebrovascular disorder Chronic obstructive pulmonary disease Congestive heart failure Diabetes insipidus Parkinson's disease General: Alert, Oriented X3 HEENT: Atraumatic, PERRLA Lungs: Clear to auscultation Heart: Regular rate Abdomen: Soft, No tenderness Extremities: No edema Skin: No breakdown Neuro: Normal speech, Strength at 5/5 X4 ext, Normal tone, Sensation intact Psych/Mental Status: Mental status NL, Mood NL Scheduled Alendronate Sodium (Fosamax), 70 MG PO Q7D, (Reported) Alprazolam (Xanax), 1 TAB PO BID, (Reported) Aspirin (Aspirin), 1 TAB PO DAILY, (Reported) Atorvastatin 40MG (Lipitor 40MG), 1 TAB PO HS, (Reported) Calcium Carb & Cit/Vitamin D3 (Calcium + D3 Er Tablet), 1 EACH PO TID, (Reported) Ceftriaxone Na/Dextrose,Iso (Ceftriaxone 1 Gm-D5w Bag), 1 GM IV DAILY24 Cyanocobalamin (Vitamin B-12) (Vitamin B12), 2 TAB PO QD, (Reported) Ergocalciferol (Vitamin D2) (Vitamin D2), 1 CAP PO Q7D, (Reported) Fluticasone/Vilanterol (Breo Ellipta 200-25 Mcg INH), 1 EACH IH DAILY24, (Reported) Furosemide (Furosemide), 1 TAB PO DAILY, (Reported) Isosorbide Mononitrate (Isosorbide Mononitrate Er), 1 TAB PO DAILY, (Reported) Levothyroxine Sodium (Levothyroxine Sodium), 1 TAB PO DAILY, (Reported) Linaclotide (Linzess), 145 MCG PO DAILY24, (Reported) Lisinopril (Prinivil), 5 MG PO DAILY24, (Reported) Magnesium Oxide (Magnesium Oxide), 1 TAB PO DAILY, (Reported) Metformin Hcl (Metformin Hcl), 1 TAB PO DAILY24, (Reported) Metoprolol Tartrate 25MG (Lopresser 25MG), 0.5 TAB PO BID, (Reported) Mirtazapine (Remeron), 45 MG PO HS, (Reported) Potassium Chloride (Potassium Chloride), 1 TAB PO DAILY, (Reported) Venlafaxine Hcl (Effexor Xr), 225 MG PO DAILY24, (Reported) Scheduled PRN Albuterol Sulfate (Proair Hfa), 2 PUFF IH Q6 PRN for SHORTNESS OF BREATH, (Reported) Prednisone (Prednisone), 0.5 TAB PO DAILY PRN for CONGESTION, (Reported) [Duoneb], 1 DOSE.PACK IH Q6 PRN for SHORTNESS OF BREATH, (Reported) Sepsis Evaluation @ Discharge Vital Sign - Last 24 Hours 06/29/21 06/29/21 08:05 08:47 Temp 98.4 Pulse 84 101 Resp 16 19 B/P (MAP) 161/56 (91) Pulse Ox 100 95 O2 Delivery Nasal Cannula O2 Flow Rate 2.00 FiO2 28 Laboratory Tests Test 06/27/21 11:58 06/27/21 16:22 06/27/21 21:09 06/28/21 07:40 Bedside Glucose 105 122 106 White Blood Count 12.9 10^3/uL Red Blood Count 3.52 10^6/uL Hemoglobin 11.1 g/dL Hematocrit 35.4 % Mean Corpuscular Volume 100.6 fL Mean Corpuscular Hemoglobin 31.5 pg Mean Corpuscular Hemoglobin Concent 31.4 g/dL Red Cell Distribution Width 14.0 % Platelet Count 205 10^3/uL Mean Platelet Volume 11.1 fL Neutrophils (%) (Auto) 85.5 % Lymphocytes (%) (Auto) 5.2 % Monocytes (%) (Auto) 8.2 % Neutrophils # (Auto) 11.0 10^3/uL Lymphocytes # (Auto) 0.67 10^3/uL1 Monocytes # (Auto) 1.1 10^3/uL Absolute Immature Granulocyte (auto 0.05 10^3 u/L Absolute Eosinophils (auto) 0.1 10^3/uL Immature Granulocytes % 0.40 % Eosinophils % 0.4 % Basophils % 0.3 % Basophils # 0.0 10^3/uL Sodium Level 129 mmol/L Potassium Level 3.1 mmol/L Chloride Level 98.0 mmol/L Carbon Dioxide Level 24.6 mmol/L Anion Gap 9.5 Blood Urea Nitrogen 5 mg/dL Creatinine 0.76 mg/dL Estimated GFR () 91.3 Est GFR (CKD-EPI)(Non-Afr Nigerien) 75.5 BUN/Creatinine Ratio 6.0 Glucose Level 120 mg/dL Calcium Level 7.4 mg/dL Total Bilirubin 0.5 mg/dL Aspartate Amino Transf (AST/SGOT) 31 U/L Alanine Aminotransferase (ALT/SGPT) 32 U/L Alkaline Phosphatase 96 U/L Total Protein 5.6 g/dL Albumin 1.9 g/dL Globulin 3.7 Albumin/Globulin Ratio 0.513 Test 06/28/21 11:57 06/28/21 17:04 06/28/21 20:10 06/29/21 06:11 Bedside Glucose 163 101 126 White Blood Count 9.4 10^3/uL Red Blood Count 3.51 10^6/uL Hemoglobin 11.1 g/dL Hematocrit 35.3 % Mean Corpuscular Volume 100.6 fL Mean Corpuscular Hemoglobin 31.6 pg Mean Corpuscular Hemoglobin Concent 31.4 g/dL Red Cell Distribution Width 13.9 % Platelet Count 248 10^3/uL Mean Platelet Volume 11.7 fL Neutrophils (%) (Auto) 76.8 % Lymphocytes (%) (Auto) 10.9 % Monocytes (%) (Auto) 9.7 % Neutrophils # (Auto) 7.2 10^3/uL Lymphocytes # (Auto) 1.02 10^3/uL1 Monocytes # (Auto) 0.9 10^3/uL Absolute Immature Granulocyte (auto 0.03 10^3 u/L Absolute Eosinophils (auto) 0.2 10^3/uL Immature Granulocytes % 0.30 % Eosinophils % 1.9 % Basophils % 0.4 % Basophils # 0.0 10^3/uL Sodium Level 137 mmol/L Potassium Level 3.6 mmol/L Chloride Level 101.0 mmol/L Carbon Dioxide Level 31.4 mmol/L Anion Gap 8.2 Blood Urea Nitrogen 4 mg/dL Creatinine 0.77 mg/dL Estimated GFR () 89.9 Est GFR (CKD-EPI)(Non-Afr Nigerien) 74.3 BUN/Creatinine Ratio 5.0 Glucose Level 102 mg/dL Calcium Level 7.6 mg/dL Total Bilirubin 0.3 mg/dL Aspartate Amino Transf (AST/SGOT) 29 U/L Alanine Aminotransferase (ALT/SGPT) 36 U/L Alkaline Phosphatase 81 U/L Total Protein 5.4 g/dL Albumin 1.7 g/dL Globulin 3.7 Albumin/Globulin Ratio 0.459 Procalcitonin 0.13 ng/mL Current Medications Medications (Trade) Dose Ordered Sig/Bird PRN Reason Start Time Stop Time Status Last Admin Acetaminophen (Tylenol) 1,000 mg Q6H PRN PAIN 1 - 3 06/27/21 15:00 07/27/21 14:59 06/29/21 00:05 Albuterol/ Ipratropium (Duo 0.5-3(2.5) Mg/3 ml) 3 ml RTQ2 PRN SHORTNESS OF BREATH 06/27/21 15:00 07/27/21 14:59 Dextrose 1,000 ml @ 100 mls/hr Q10H PRN hypoglycemia 06/27/21 15:00 07/27/21 14:59 Dextrose (Dextrose 10%-Water Iv Solution) 125 ml PRN PRN hypoglycemia 06/28/21 14:26 07/27/21 14:59 Enoxaparin Sodium (Lovenox) 40 mg Q24HRS 06/27/21 15:30 07/27/21 15:29 06/28/21 16:29 Insulin Human Lispro (Humalog) 0-140 0 Units 141-200... ACHS 06/27/21 17:30 07/27/21 17:29 06/28/21 12:55 Morphine Sulfate (Morphine Sulfate) 2 mg Q6H PRN PAIN 7 - 10 06/27/21 04:00 07/27/21 03:59 06/27/21 06:25 Ondansetron HCl (Zofran) 4 mg Q6 PRN NAUSEA / VOMITING 06/27/21 17:00 07/27/21 16:59 06/27/21 17:04 Pantoprazole Sodium (Protonix Iv) 40 mg DAILY 06/28/21 09:00 07/28/21 08:59 06/29/21 10:13 Piperacillin Sod/ Tazobactam Sod 3.375 gm/Sodium Chloride 100 ml @ 100 mls/hr Q6H 06/26/21 23:00 07/26/21 22:59 06/29/21 10:13 Sodium Chloride 1,000 ml @ 100 mls/hr Q10H 06/27/21 00:30 07/27/21 00:29 06/28/21 16:29 Tramadol HCl (Ultram) 50 mg Q6 PRN PAIN 4 - 6 06/27/21 17:00 07/27/21 16:59 06/28/21 03:24 Course Sepsis Screening Results: Posi: NEGATIVE Sepsis Qualifier/Stage: SEPSIS RISK Duration or Total Time Spent w: 60 min Vitals & review Data Vital Sign - Last 24 Hours 06/29/21 06/29/21 08:05 08:47 Temp 98.4 Pulse 84 101 Resp 16 19 B/P (MAP) 161/56 (91) Pulse Ox 100 95 O2 Delivery Nasal Cannula O2 Flow Rate 2.00 FiO2 28 Laboratory Tests Test 06/27/21 11:58 06/27/21 16:22 06/27/21 21:09 06/28/21 07:40 Bedside Glucose 105 122 106 White Blood Count 12.9 10^3/uL Red Blood Count 3.52 10^6/uL Hemoglobin 11.1 g/dL Hematocrit 35.4 % Mean Corpuscular Volume 100.6 fL Mean Corpuscular Hemoglobin 31.5 pg Mean Corpuscular Hemoglobin Concent 31.4 g/dL Red Cell Distribution Width 14.0 % Platelet Count 205 10^3/uL Mean Platelet Volume 11.1 fL Neutrophils (%) (Auto) 85.5 % Lymphocytes (%) (Auto) 5.2 % Monocytes (%) (Auto) 8.2 % Neutrophils # (Auto) 11.0 10^3/uL Lymphocytes # (Auto) 0.67 10^3/uL1 Monocytes # (Auto) 1.1 10^3/uL Absolute Immature Granulocyte (auto 0.05 10^3 u/L Absolute Eosinophils (auto) 0.1 10^3/uL Immature Granulocytes % 0.40 % Eosinophils % 0.4 % Basophils % 0.3 % Basophils # 0.0 10^3/uL Sodium Level 129 mmol/L Potassium Level 3.1 mmol/L Chloride Level 98.0 mmol/L Carbon Dioxide Level 24.6 mmol/L Anion Gap 9.5 Blood Urea Nitrogen 5 mg/dL Creatinine 0.76 mg/dL Estimated GFR () 91.3 Est GFR (CKD-EPI)(Non-Afr Nigerien) 75.5 BUN/Creatinine Ratio 6.0 Glucose Level 120 mg/dL Calcium Level 7.4 mg/dL Total Bilirubin 0.5 mg/dL Aspartate Amino Transf (AST/SGOT) 31 U/L Alanine Aminotransferase (ALT/SGPT) 32 U/L Alkaline Phosphatase 96 U/L Total Protein 5.6 g/dL Albumin 1.9 g/dL Globulin 3.7 Albumin/Globulin Ratio 0.513 Test 06/28/21 11:57 06/28/21 17:04 06/28/21 20:10 06/29/21 06:11 Bedside Glucose 163 101 126 White Blood Count 9.4 10^3/uL Red Blood Count 3.51 10^6/uL Hemoglobin 11.1 g/dL Hematocrit 35.3 % Mean Corpuscular Volume 100.6 fL Mean Corpuscular Hemoglobin 31.6 pg Mean Corpuscular Hemoglobin Concent 31.4 g/dL Red Cell Distribution Width 13.9 % Platelet Count 248 10^3/uL Mean Platelet Volume 11.7 fL Neutrophils (%) (Auto) 76.8 % Lymphocytes (%) (Auto) 10.9 % Monocytes (%) (Auto) 9.7 % Neutrophils # (Auto) 7.2 10^3/uL Lymphocytes # (Auto) 1.02 10^3/uL1 Monocytes # (Auto) 0.9 10^3/uL Absolute Immature Granulocyte (auto 0.03 10^3 u/L Absolute Eosinophils (auto) 0.2 10^3/uL Immature Granulocytes % 0.30 % Eosinophils % 1.9 % Basophils % 0.4 % Basophils # 0.0 10^3/uL Sodium Level 137 mmol/L Potassium Level 3.6 mmol/L Chloride Level 101.0 mmol/L Carbon Dioxide Level 31.4 mmol/L Anion Gap 8.2 Blood Urea Nitrogen 4 mg/dL Creatinine 0.77 mg/dL Estimated GFR () 89.9 Est GFR (CKD-EPI)(Non-Afr Nigerien) 74.3 BUN/Creatinine Ratio 5.0 Glucose Level 102 mg/dL Calcium Level 7.6 mg/dL Total Bilirubin 0.3 mg/dL Aspartate Amino Transf (AST/SGOT) 29 U/L Alanine Aminotransferase (ALT/SGPT) 36 U/L Alkaline Phosphatase 81 U/L Total Protein 5.4 g/dL Albumin 1.7 g/dL Globulin 3.7 Albumin/Globulin Ratio 0.459 Procalcitonin 0.13 ng/mL Current Medications Medications (Trade) Dose Ordered Sig/Bird PRN Reason Start Time Stop Time Status Last Admin Acetaminophen (Tylenol) 1,000 mg Q6H PRN PAIN 1 - 3 06/27/21 15:00 07/27/21 14:59 06/29/21 00:05 Albuterol/ Ipratropium (Duo 0.5-3(2.5) Mg/3 ml) 3 ml RTQ2 PRN SHORTNESS OF BREATH 06/27/21 15:00 07/27/21 14:59 Dextrose 1,000 ml @ 100 mls/hr Q10H PRN hypoglycemia 06/27/21 15:00 07/27/21 14:59 Dextrose (Dextrose 10%-Water Iv Solution) 125 ml PRN PRN hypoglycemia 06/28/21 14:26 07/27/21 14:59 Enoxaparin Sodium (Lovenox) 40 mg Q24HRS 06/27/21 15:30 07/27/21 15:29 06/28/21 16:29 Insulin Human Lispro (Humalog) 0-140 0 Units 141-200... ACHS 06/27/21 17:30 07/27/21 17:29 06/28/21 12:55 Morphine Sulfate (Morphine Sulfate) 2 mg Q6H PRN PAIN 7 - 10 06/27/21 04:00 07/27/21 03:59 06/27/21 06:25 Ondansetron HCl (Zofran) 4 mg Q6 PRN NAUSEA / VOMITING 06/27/21 17:00 07/27/21 16:59 06/27/21 17:04 Pantoprazole Sodium (Protonix Iv) 40 mg DAILY 06/28/21 09:00 07/28/21 08:59 06/29/21 10:13 Piperacillin Sod/ Tazobactam Sod 3.375 gm/Sodium Chloride 100 ml @ 100 mls/hr Q6H 06/26/21 23:00 07/26/21 22:59 06/29/21 10:13 Sodium Chloride 1,000 ml @ 100 mls/hr Q10H 06/27/21 00:30 07/27/21 00:29 06/28/21 16:29 Tramadol HCl (Ultram) 50 mg Q6 PRN PAIN 4 - 6 06/27/21 17:00 07/27/21 16:59 06/28/21 03:24 LEVEL 1 SEPSIS INFECTION CRITE: ABX Therapy, Urinary Tract Infection LEVEL 2-SIRS (LIST ALL THAT AP: None/Not assessed Cardiovascular Evidence: Not Assessed or None Hematologic Evidence: None/Not assessed Hepatic Evidence: None/Not assessed Metabolic Evidence: None/Not assessed Neurological Evidence: None/Not assessed Respiratory Evidence: Need for O2 to keep>90%, O2 SAT<90room air Renal Evidence: None/Not assessed O2 Sat by Pulse Oximetry: 99 Respiratory End-tidal CO2: 51 Oxygen Flow Rate: 3.00 Plan Assessment Plan Continue IV antibiotics2 weeks outpatient midline placed Urine culture growing Proteus and Klebsiella sensitive to Zosyn. But both are also sensitive to ceftriaxone Urologist consulted Recommended treating pyelonephritis with IV antibiotics and rechecking abscess on CT after antibiotics if improving no intervention if still present consider outpatient IR drainage SSI Patient will discharge on 2 weeks of ceftriaxone IV with repeat CT scan to monitor for resolution of infection with the understanding that she may need interventional radiation drainage if abscess present at that time GI and DVT prophylaxis appropriate Full code AHSAN THOMAS MD Jun 30, 2021 15:12
--- NOTE | 2021-06-30 15:31 | NUR ---
DISCHARGE PLAN- [facility] CM FAXED [facility] TO [facility]. FAX CONFIRMATION CONFIRMED COMPLETE. CM NOTIFIED DR Priya THOMAS OF PATIENT ABLE TO TRANSFER TO [facility] TODAY. CM NOTIFIED GAN[facility] [employer] [facility] NURSE OF PATIENT ACCEPTED @[facility] AND FOR THEM TO CONTACT [facility] TO ARRANGE TRANSPORTATION. CM FAXED CM NOTES TO [facility] TO CONFIRM DISCHARGE PLAN FOR PATIENT FOLLOWING SNF.
[2021-06-30] MEDS: LOVENOX SQ SCH (16:20)
[2021-06-30 16:38] VITALS: BP 139/96
[2021-06-30 17:30] VITALS: BP 139/96
--- NOTE | 2021-06-30 18:15 | NUR ---
Report called to Kitty at [facility].
--- NOTE | 2021-06-30 19:08 | NUR ---
2900 MIDLINE ARRIVED ON FLOOR TO START MIDLINE ON ANOTHER PATIENT AND STAFF ASKED THAT I RESTART MIDLINE ON THIS PATIENT. MIDLINE WAS STARTED YESTERDAY BUT HAS CLOTTED AND IS UNABLE TO BE FLUSHED WITH SALINE OR HEPARIN. UPON ENTERING PATIENT'S ROOM, MIDLINE TO RIGHT ARM IS SATURATED WITH DRY BLOODY DRAINAGE.. PATIENT IS PREPARING TO LEAVE FACILITY FOR REHAB AND WILL NEED RETIREMENT ANTIBIOTICS. MIDLINE STARTED TO LEFT ARM. SEE MIDLINE TEAM NOTE.
[2021-06-30] MEDS ORDERED: XANAX PO SCH (21:00)
[2021-06-30] MEDS ORDERED: REMERON PO SCH (21:00)
[2021-06-30] MEDS ORDERED: LIPITOR PO SCH (21:00)
[2021-06-30] MEDS ORDERED: LOPRESSOR PO SCH (21:00)
[2021-06-30] MEDS ORDERED: DESYREL PO SCH (21:00)
[2021-06-30] MEDS ORDERED: REMERON SL SCH (21:00)
[2021-07-01] MEDS ORDERED: SYNTHROID PO SCH (06:30)
[2021-07-01] MEDS ORDERED: EFFEXOR XR PO SCH (09:00)
[2021-07-01] MEDS ORDERED: PREDNISONE PO SCH (09:00)
[2021-07-01] MEDS ORDERED: ZESTRIL PO SCH (09:00)
[2021-07-01] MEDS ORDERED: MAG-OX PO SCH (09:00)
[2021-07-01] MEDS ORDERED: KLOR-CON 10 PO SCH (09:00)
[2021-07-01] MEDS ORDERED: GLUCOPHAGE XR PO SCH (09:00)
[2021-07-01] MEDS ORDERED: ASPIRIN PO SCH (09:00)
[2021-07-01] MEDS ORDERED: LASIX PO SCH ×2 (09:00)
[2021-07-01] MEDS ORDERED: IMDUR PO SCH ×2 (09:00)
[2021-07-01] MEDS ORDERED: VITAMIN B-12 PO SCH (09:00)
[2021-07-06] MEDS ORDERED: VITAMIN D2 PO SCH (12:00)
== END 2021-06-30 16:45 | DRG 871 ==
LOC: EDUNIT# 17:43 → EDBD 17:43 → ER 17:43 → MS 23:09 → ICU 06-27 00:02 → MS 06-27 16:34
PROVIDERS: ADMIT Family Medicine; ATTEND Family Medicine
PROC: 05HY33Z Insertion of Infusion Device into Upper Vein, Percutaneous Approach (ICD-10-PCS; principal; 2021-06-29)
DX: A41.9 Sepsis, unspecified organism (principal); N15.1 Renal and perinephric abscess; N12 Tubulo-interstitial nephritis, not specified as acute or chronic; Z68.43 Body mass index [BMI] 50.0-59.9, adult; R65.20 Severe sepsis without septic shock; J44.9 Chronic obstructive pulmonary disease, unspecified; B96.1 Klebsiella pneumoniae [K. pneumoniae] as the cause of diseases classified elsewhere; B96.4 Proteus (mirabilis) (morganii) as the cause of diseases classified elsewhere; E11.9 Type 2 diabetes mellitus without complications; E66.01 Morbid (severe) obesity due to excess calories; E87.6 Hypokalemia; Z20.822 Contact with and (suspected) exposure to COVID-19; I95.9 Hypotension, unspecified; I50.9 Heart failure, unspecified; I25.10 Atherosclerotic heart disease of native coronary artery without angina pectoris; I11.0 Hypertensive heart disease with heart failure; Z82.49 Family history of ischemic heart disease and other diseases of the circulatory system; Z95.0 Presence of cardiac pacemaker; Z95.1 Presence of aortocoronary bypass graft; Z82.0 Family history of epilepsy and other diseases of the nervous system; Z88.1 Allergy status to other antibiotic agents; Z79.82 Long term (current) use of aspirin; Z79.899 Other long term (current) drug therapy
CPT/HCPCS: 36415; 36569; 36600; 71045; 74176; 74177; 80053; 81001; 82550; 82553; 82803; 82948; 83605; 83880; 84145; 84484; 85025; 85610; 85730; 87040; 87077; 87086; 87186; 87426; 93005; 94640; 99285; C9113; G0378; J1650; J1815; J1940; J2405; J2543; J3490; J7030; Q9965; J3480

== ENCOUNTER → 2021-07-05 | Outpatient (CLI) | payer MEDICARE, MEDICAID ==
[~2021-07-05] MED LIST changes: +CEFT1PIG2 IV
== END | disposition home or self-care (01) ==
LOC: NPLAB 14:13
PROVIDERS: ATTEND Family Medicine
DX: R00.0 Tachycardia, unspecified (principal); E55.9 Vitamin D deficiency, unspecified
CPT/HCPCS: 84132